=== PATIENT | male | born 1945 | race Caucasian/White ===

== ENCOUNTER 2017-05-04 04:34 | Inpatient (IN) | payer MEDICARE ==
[2017-05-04] MEDS ORDERED: NS 0.9% 1000 ML* 2,000 ML IV ONE (05:06)
[2017-05-04] MEDS ORDERED: Iodixanol* (CONTRAST) 320 MG/ML 100 ML SDV IV ONE (05:27)
[2017-05-04 05:52] LABS: ABS Basophils 0 10^3/ul (0-0.2); ABS Eosinophils 0 10^3/ul (0-0.6); ABS Lymphocytes 0.8 10^3/ul (1.0-4.8); ABS Monocytes 1.3 10^3/ul (0-0.8); ABS Neutrophils 14.2 10^3/ul (1.5-7.7); ABS Nucleated RBC 0 10^3/ul; Eosinophil % 0 % (0-6); Hematocrit 39 % (42-52); Hemoglobin 13.2 g/dl (14.0-18.0); Lymphocyte % 4.7 % (25-47); Mean Corpuscular HGB Conc 34 g/dl (31-36); Mean Corpuscular Hemoglobin 29 pg (27-31); Mean Corpuscular Volume 86 fL (80-94); Mean Platelet Volume 10 um3 (7.4-10.4); Nucleated Red Blood Cells % 0.1; Platelet Count 211 10^3/ul (150-450); Red Blood Count 4.55 10^6/ul (4.0-5.4); Red Cell Distribution Width 13 % (10.5-15); White Blood Count 16.3 10^3/ul (3.5-10.8)
[2017-05-04 06:03] LABS: EGFR Non-African American 72.4 (>60)
[2017-05-04 06:08] LABS: INR 1.1 (0.77-1.02)
[2017-05-04] MEDS ORDERED: Enoxaparin(*) 100 MG/ML SYR SUBCUT ONE (07:00)
--- NOTE | 2017-05-04 07:07 | ED ---
Mandy Chambers Edward, scribed for Jama Vazquez MD on 05/04/17 at 0445 . GI/ HPI - HPI Summary HPI Summary: 71 y/o male BIBA from [facility] for CT and possible surgical consult. In the ED the pt denies any specific complaints. Per nursing note, the pt has been intermittently vomiting for the past 4 weeks. Pt also had a PEG tube placed in that time period. Denies pain, denies history of CVA. - History of Current Complaint Time Seen by Provider: 05/04/17 04:43 Stated Complaint: VOMITING Hx Obtained From: Patient Onset/Duration: Started Weeks Ago Timing: Intermittent Location of Pain: None Associated Signs and Symptoms: Positive: Vomiting - Allergy/Home Medications Allergies/Adverse Reactions: Allergies Allergy/AdvReac Type Severity Reaction Status Date / Time Ibuprofen Allergy Unknown Verified 05/04/17 04:54 Reaction Details Naproxen [From Aleve] Allergy Unknown Verified 05/04/17 04:54 Reaction Details Venlafaxine Allergy Unknown Verified 05/04/17 04:54 Reaction Details Home Medications: Home Medications Acetaminophen [Acetaminophen Extra Stren] 500 mg PEG TUBE TID 05/04/17 [History Confirmed 05/04/17] Amitriptyline HCl [Elavil] 30 mg PEG TUBE DAILY 05/04/17 [History Confirmed ] Aspirin 81 mg PEG TUBE DAILY 05/04/17 [History Confirmed 05/04/17] Atorvastatin* [Lipitor*] 80 mg PO 1700 05/04/17 [History Confirmed 05/04/17] Bisacodyl [Dulcolax] [address] DAILY PRN 05/04/17 [History Confirmed 05/04/17] Brimonid/Timolol 0.2/0.5%(NF) [Combigan 0.2/0.5% (NF)] 1 drop BOTH EYES BID [History Confirmed 05/04/17] Calcium Ascorbate [Vitamin C] 500 mg PEG TUBE DAILY 05/04/17 [History Confirmed 05/04/17] Cholecalciferol [Vitamin D] 1,000 unit PEG TUBE DAILY 05/04/17 [History Confirmed 05/04/17] Clopidogrel Bisulfate [Plavix] 75 mg PO DAILY 05/04/17 [History Confirmed ] Cosopt 22.3-6.8 mg/ml 1 drop BOTH EYES BID 05/04/17 [History Confirmed 05/04/17] Docusate Sodium [Colace] 100 mg PEG TUBE DAILY 05/04/17 [History Confirmed 05/04] Famotidine SUSP* [Pepcid SUSP*] 40 mg PEG TUBE DAILY 05/04/17 [History Confirmed 05/04/17] Insulin Regular (Human) [Novolin R Relion] 05/04/17 [History] Latanoprost 0.005%* [Xalatan 0.005%*] 1 drop BOTH EYES QPM 05/04/17 [History Confirmed 05/04/17] Metformin HCl 500 mg PEG TUBE BID 05/04/17 [History Confirmed 05/04/17] Multiple Vitamins W/ Minerals [Multivitamin Adults] 1 tab PEG TUBE DAILY [History Confirmed 05/04/17] Nutritional Supplements [Glucerna 1.2 Primo] 1 liq PO TID 05/04/17 [History Confirmed 05/04/17] QUEtiapine TAB* [SEROquel TAB*] 100 mg PO BEDTIME 05/04/17 [History Confirmed ] Quetiapine Fumarate [Seroquel] 50 mg PEG TUBE BID 05/04/17 [History Confirmed ] PMH/Surg Hx/FS Hx/Imm Hx Previously Healthy: No Endocrine/Hematology History: Reports: Hx Diabetes Cardiovascular History: Reports: Hx Deep Vein Thrombosis, Hx Hypertension Neurological History: Reports: Hx Dementia Psychiatric History: Reports: Hx Eating Disorder - Refuses food Denies: Hx of Violent Episodes Against Others - Surgical History Surgery Procedure, Year, and Place: SHUNT 2011 - Family History Known Family History: Positive: Unknown - Social History Alcohol Use: None Hx Substance Use: No Substance Use Type: Reports: None Hx Tobacco Use: No Smoking Status (MU): Never Smoked Tobacco Review of Systems Constitutional: Negative Eyes: Negative ENT: Negative Cardiovascular: Negative Respiratory: Negative Positive: Vomiting Genitourinary: Negative Musculoskeletal: Negative Skin: Negative Neurological: Negative Psychological: Normal All Other Systems Reviewed And Are Negative: Yes Physical Exam - Summary Physical Exam Summary: VITAL SIGNS: Reviewed. GENERAL: Patient is a well-developed and nourished male who is lying comfortable in the stretcher. Patient is not in any acute respiratory distress. Patient is a poor historian and does not have any specific complaints. HEAD AND FACE: No signs of trauma. No ecchymosis, hematomas or skull depressions. No sinus tenderness. EYES: PERRLA, EOMI x 2, No injected conjunctiva, no nystagmus. EARS: Hearing grossly intact. Ear canals and tympanic membranes are within normal limits. MOUTH: Oropharynx within normal limits. NECK: Supple, trachea is midline, no adenopathy, no JVD, no carotid bruit, no c- spine tenderness, neck with full ROM. CHEST: Symmetric, no tenderness at palpation LUNGS: Clear to auscultation bilaterally. No wheezing or crackles. CVS: Regular rate and rhythm, S1 and S2 present, no murmurs or gallops appreciated. ABDOMEN: Soft, mild diffuse tenderness. ABD distension. No rebound no guarding, and no masses palpated. Hypoactive bowel sounds. Pt has a PEG tube placed. EXTREMITIES: FROM in all major joints, no edema, no cyanosis or clubbing. NEURO: Alert and oriented x 3. No acute neurological deficits. Speech is normal and follows commands. SKIN: Dry and warm Triage Information Reviewed: Yes Vital Signs Reviewed: Yes Diagnostics - Laboratory Result Diagrams: 05/04/17 05:35 05/04/17 05:35 Lab Statement: Any lab studies that have been ordered have been reviewed, and results considered in the medical decision making process. - CT ABD/PEL CTA CT Interpretation: Positive (See Comments) - Positive for pulmonary embolism. Mildly thickened segment of lef t upper quadrant small bowel may reflect nonspecific enteritis. Percutaneous gastrostomy tube with balloon inflated in the duodenum. CT Interpretation Completed By: Radiologist - ED PHYSICIAN REVIEWS AND AGREES - Additional Comments Diagnostic Additional Comments: EKG - SR @ 98 BPM. L axis deviation. Non specific T wave changes. No change from EKG done on 06/23/14. GIGU Course/Dx - Course Assessment/Plan: 71 y/o male BIBA from [facility] for CT and possible surgical consult. Pt had a PEG tube placed in the last 4 weeks. ABD/PEL CTA SHOWS Positive for pulmonary embolism. Mildly thickened segment of lef t upper quadrant small bowel may reflect nonspecific enteritis. Percutaneous gastrostomy tube with balloon inflated in the duodenum. Pt will be signed out to Dr. Gallardo at shift change pending admission. - Diagnoses Provider Diagnoses: Pulmonary embolism, Abdominal pain Discharge - Discharge Plan Condition: Stable Disposition: OTHER Discharge Disposition Comment: Pt signed out to Dr. Gallardo pending admission Referrals: No Primary Care Phys,NOPCP [Primary Care Provider] - The documentation as recorded by the Mandy murphy Edward accurately reflects the service I personally performed and the decisions made by me, Jama Vazquez MD.
[2017-05-04] MEDS ORDERED: Potassium Chlor TAB* 20 MEQ TAB.ER PO ONE (07:19)
--- NOTE | 2017-05-04 07:42 | ED ---
Alex Chambers Angela, scribed for Francisco Gallardo MD on 05/04/17 at 0720 . Progress - Progress Note Progress Note: This pt was signed out by Dr. Vazquez, pending disposition. Pt is a 71 y/o male presenting to [facility] [place] from [place] for CT and possible surgical consult. CTA abd/pelvis shows: Positive for pulmonary embolism. Mildly thickened segment of left upper quadrant small bowel may reflect nonspecific enteritis. Percutaneous gastrostomy tube with balloon inflated in the duodenum. The pt will be admitted to [facility], in stable condition. Condition: Stable Disposition: Admitted to [facility] Course/Dx - Diagnoses Provider Diagnoses: Pulmonary embolism, Abdominal pain - Provider Notifications Discussed Care Of Patient With: Oni Caro Time Discussed With Above Provider: 07:20 Instructed by Provider To: Other - I discussed pt care with Dr. Caro, hospitalist, who has agreed to admit the pt. The documentation as recorded by the Alex murphy Angela accurately reflects the service I personally performed and the decisions made by , Francisco Gallardo MD.
--- NOTE | 2017-05-04 08:06 | RAD ---
INDICATION: 4 weeks vomiting. PEG tube. Ischemia. COMPARISON: May 04, 2017 PEG tube placement intraoperative film from [facility]. TECHNIQUE: Multidetector CT images were obtained from the lung bases to the ischial tuberosities with 100 mL Visipaque 320 IV contrast. Multiplanar reformation. 3-D arterial volume rendering. REPORT: At the cephalad margin of the [id number] there is evidence for a high burden of acute pulmonary embolism at the distal main pulmonary arteries extending into the visualized lower lobe pulmonary arteries. Coronary artery calcifications. Negative for cardiomegaly or pericardial effusion. Mild bibasilar subsegmental atelectasis. No suspicious finding of the gallbladder or liver. Unremarkable mildly atrophic pancreas. Unremarkable spleen. Mild circumferential mural thickening of the visualized distal esophagus. Percutaneous gastrostomy tube in place with the balloon at the level of the second segment of the duodenum. Mild gastric distention with gas and fluid. No suspicious CT finding of the small bowel. The appendix is not visualized with motion artifact limiting assessment. Unremarkable colon. Negative for ascites, free air, or significant hernias. Normal adrenal glands. Mildly atrophic kidneys with symmetric nephrograms. Few small renal cortical cysts. Negative for hydronephrosis. Unremarkable nondilated ureters and moderately distended urinary bladder. Symmetric seminal vesicles. Negative for lymphadenopathy. Mild atherosclerotic plaque. Negative for aortoiliac aneurysm. 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 Approximate 50% stenosis at the ostium of the RIGHT renal artery and 70% stenosis at the ostium of the LEFT renal artery. Negative for suspicious osseous lesions. IMPRESSION: 1. High burden of acute pulmonary embolism. 2. Mild circumferential mural thickening of the visualized distal esophagus; while nonspecific the most likely etiology is esophagitis. 3. The balloon of the gastrostomy tube is at the level of the second segment of the duodenum and may result in partial obstruction. Correlate with clinical assessment. 4. Mild atherosclerotic plaque. Negative for aortoiliac aneurysm. 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 Approximate 50% stenosis at the ostium of the RIGHT renal artery and 70% stenosis at the ostium of the LEFT renal artery.
[2017-05-04] MEDS ORDERED: Ondansetron INJ* 2 MG/ML VIAL IV PRN (11:52)
[2017-05-04] MEDS ORDERED: Acetaminophen TAB* 325 MG PO PRN (11:52)
[2017-05-04] MEDS ORDERED: Piperacillin/Tazobac ADVAN(*) 3.375 GM in NS 0.9% 100 ML* 100 ML IVPB ONE (11:52)
[2017-05-04] MEDS ORDERED: Dextrose 50% Syringe 50 ML* 25 GM/50 ML SYRINGE IV PUSH PRN (11:57)
[2017-05-04] MEDS ORDERED: Zosyn per Pharmacy* NOTE FOLLOW UP SCH (12:00)
[2017-05-04] MEDS ORDERED: Magnesium Sulfate 2 GM IV* 2 GM/50 ML BAG IVPB ONE (12:03)
[2017-05-04] MEDS ORDERED: LORazepam INJ* 2 MG/ML 1 ML VIAL IV PUSH ONE ×2 (12:18→22:03)
--- NOTE | 2017-05-04 12:35 | RAD ---
HISTORY: Cough COMPARISONS: May 03, 2017 VIEWS: 1: frontal portable view of the chest at 12:10 PM FINDINGS: LINES AND TUBES: LINE CAMERA OPERATOR shunt tubing is noted on the right. CARDIOMEDIASTINAL SILHOUETTE: The cardiomediastinal silhouette is normal for portable technique. PLEURA: The costophrenic angles are sharp. No pleural abnormalities are noted. LUNG PARENCHYMA: The lung volumes are low. ABDOMEN: The upper abdomen is clear. There is no subphrenic gas. BONES AND SOFT TISSUES: No bone or soft tissue abnormalities are noted. IMPRESSION: LOW LUNG VOLUMES. NO ACTIVE CARDIOPULMONARY DISEASE.
[2017-05-04] MEDS: NS 0.9% 1000 ML* 1,000 ML IV SCH (13:14)
[2017-05-04] MEDS: Insulin LISPRO* 1 UNITS UNIT SUBCUT SCH ×2 (14:19→21:53)
[2017-05-04] MEDS: Pantoprazole IV* 40 MG IV SCH (14:20)
[2017-05-04] MEDS: KCL 10 MEQ/50 ML IVPREMIX* 10 MEQ/50 ML BAG IV SCH ×3 (16:13→20:46)
--- NOTE | 2017-05-04 17:05 | ECHO ---
Patient: ZAFAR PLATA [facility] Rec#: [id number] : 1945 Date: 05/04/2017 Age: 71y Height: 175.26 cm / 69.0 in Weight: 81.19 kg / 178.9 lbs Sex: M BSA: 1.97 Room#: 436 Admit Date#: 05/04/2017 Type: Inpatient Referring: Moses Simon NP Reading: Solomon Boggs MD Event Marketing Representative: [facility] Indication: Recent CVA and Pulmonary emboli BP: 127/72 HR: 102 Rhythm: Tachycardia Findings History: HTN, DVT, DM, hydrocephalus. Technical Comments: The study quality is poor. The study is technically limited due to poor acoustic windows. Completed at 1630. Left Ventricle: The left ventricular chamber size is normal. Mild concentric left ventricular hypertrophy is observed. Global left ventricular wall motion and contractility are within normal limits. The left ventricle appears hyperdynamic. The estimated ejection fraction is greater than 65%. Abnormal left ventricular diastolic function is observed. There is an E to A reversal in the mitral valve flow pattern suggestive of diastolic dysfunction. Left Atrium: The left atrial chamber size is normal. Right Ventricle: Moderator Band present. The right ventricle is mildly dilated. The right ventricular global systolic function is hyperdynamic. Right Atrium: The right atrial cavity size is normal. Interatrial septum appears intact without evidence of shunting. Bubble study completed, Image quality not clear enough to rule out PFO or shunting Aortic Valve: The aortic valve is trileaflet. The aortic valve leaflets are mildly thickened. There is no evidence of aortic regurgitation. There is no evidence of aortic stenosis. Mitral Valve: There is mitral annular calcification. The mitral valve leaflets are mildly thickened. There is trace to mild mitral regurgitation. There is no evidence of mitral stenosis. Tricuspid Valve: The tricuspid valve leaflets are normal. There is mild tricuspid regurgitation. The right ventricular systolic pressure is estimated at 52 mmHg. There is evidence of moderate pulmonary hypertension. There is no tricuspid stenosis. Pulmonic Valve: The pulmonic valve appears normal. There is a trace pulmonic regurgitation. There is no pulmonic stenosis. Pericardium: There is no significant pericardial effusion. A pericardial fat pad is visualized. Aorta: There is moderate dilatation of the ascending aorta.4.1 cm There is no dilatation of the aortic arch. There is mild dilatation of the aortic root. Pulmonary Artery: The main pulmonary artery appears normal. Venous: The inferior vena cava is dilated. There is a greater than 50% respiratory change in the inferior vena cava dimension. Contrast: Normal saline was used as contrast for the bubble study. Images 93 and 94. Intravenous contrast was used to help determine presence of intracardiac shunting. Summary: There was not any prior study for comparison. Conclusions The study is technically limited due to poor acoustic windows. Completed at 1630. Global left ventricular wall motion and contractility are within normal limits. The estimated ejection fraction is greater than 65%. Abnormal left ventricular diastolic function is observed. The right ventricular global systolic function is hyperdynamic. Interatrial septum without aneurysm. Bubble study completed, Image quality not clear enough to rule out PFO or shunting There is no evidence of aortic stenosis. There is trace to mild mitral regurgitation. There is mild tricuspid regurgitation. The right ventricular systolic pressure is estimated at 52 mmHg. There is evidence of moderate pulmonary hypertension. There is moderate dilatation of the ascending aorta.4.1 cm Measurements Name Value Normal Range RVIDd (AP) 2D 3.6 cm (0.9 - 2.6) RVDdMajor (2D) 4.8 cm (2.2 - 4.4) RAd ISD 4CH 4.7 cm (3.4 - 4.9) RA (A4C)W 4.4 cm (2.9 - 4.6) IVSd (2D) 1.1 cm (0.6 - 1) LVPWd (2D) 1.1 cm (0.6 - 1) LVIDd (2D) 4.1 cm (3.6 - 5.4) LVIDs (2D) 2 cm - LV FS (2D) 50 % (25 - 45) Aortic Annulus 2.3 cm (1.4 - 2.6) Ao root diameter (2D) 3.8 cm (2.1 - 3.5) Ascending Ao 4.1 cm (2.1 - 3.4) Aortic arch 3 cm (1.8 - 3.4) LA dimension (AP) 2D 3.2 cm (2.3 - 3.8) LAd ISD 4CH 4.3 cm (2.9 - 5.3) LA ISD 4CH W 3.6 cm (2.5 - 4.5) Name Value Normal Range LA ESV SP 4CH (A/L) 55 ml - LA ESV SP 2CH (A/L) 49 ml - LA ESV BP (A/L) 53 ml - LA ESV BP (A/L) index 27 ml/m2 - LA ESV SP 4CH (MOD) 51 ml - LA ESV SP 2CH (MOD) 45 ml - Name Value Normal Range MV E-wave Vmax 0.58 m/sec - MV deceleration time 204.89 msec - MV A-wave Vmax 1.01 m/sec - MV E:A ratio 0.57 ratio - LV septal e' Vmax 0.08 m/sec - LV lateral e' Vmax 0.09 m/sec - LV E:e' septal ratio 7.25 ratio - LV E:e' lateral ratio 6.44 ratio - Name Value Normal Range AV Vmax 1.6 m/sec - AV VTI 27.26 cm - AV peak gradient 8.17 mmHg - AV mean gradient 4.52 mmHg - LVOT Vmax 1.4 m/sec - LVOT VTI 23 cm - LVOT peak gradient 8.5 mmHg - LVOT mean gradient 4.23 mmHg - VALERY Vmax 0.73 m/sec - Name Value Normal Range TR Vmax 3.3 m/sec - TR peak gradient 44 mmHg - RAP 8 mmHg - RVSP 52 mmHg - IVC diameter 2.5 cm - Name Value Normal Range PV Vmax 1.09 m/sec - PV peak gradient 4.75 mmHg -
[2017-05-04] MEDS: Atorvastatin* 80 MG TAB PO SCH (17:40)
[2017-05-04] MEDS: ZOSYN 3.375 GM Q8H per EXTENDED INFUSION IVPB SCH ×2 (18:13)
--- NOTE | 2017-05-04 18:41 | RAD ---
Indication: PICC repositioning. Single view of the abdomen demonstrates PEG tube to be within the small bowel with contrast in the small bowel. IMPRESSION: Percutaneous gastrostomy tube is likely in the duodenum.
--- NOTE | 2017-05-04 20:30 | HP ---
CC: Dr. Schulz; Dr. Adame; Dr. Ayala * HISTORY AND PHYSICAL: DATE OF ADMISSION: 05/04/17 PRIMARY CARE PROVIDER: Dr. Ayala. CONSULTING SHINGLE BOLT CUTTER: Dr. Schulz. CONSULTING NEUROLOGIST: Dr. Adame. ATTENDING PHYSICIAN WHILE IN THE HOSPITAL: Leodan Caro MD * (report dictated by Moses iSmon NP). CHIEF COMPLAINT: 1. Vomiting. 2. Chest pain. HISTORY OF PRESENT ILLNESS: Mr. Lyons is a 71-year-old male patient with a complex medical history. He comes in to the ED today because of vomiting, which has been getting progressively worse over the last week. He does have a history of bipolar, hypertension, hyperlipidemia, dementia, arthritis, and diabetes. He has a history of hydrocephalus with a END USER CONSULTANT shunt and history of stroke on 03/23/17. He was treated at [facility]. Also has a history of ANNIE, also the stroke caused him to have residual right-sided weakness and difficulty with swallowing. He had a G-tube placed three weeks ago in [facility] and from [facility], he was transferred to [facility]. Yesterday morning, he was complaining of chest pain and vomiting. He was evaluated in the [place] ED, sent back to the longterm. It was felt the chest pain was probably from the vomiting according to the family; however, he continued to vomit and last night, he was still having chest pain, so he was reevaluated again last night at [facility]. There was concern there because of the recurrence of chest pain and the vomiting. He was ultimately sent to [facility] for evaluation of the chest pain and the vomiting. There has been no reports of fever. The family says that he has been having intermittent issues with vomiting with his PEG tube feedings since the placement. Initially, they felt it was related to that they had increased his rate too fast, they slowed down his rates beginning of this month and then they got him back to his goal rate, but they have noticed in the last week that they switched him over to bolus tube feedings and they noticed that with this, he has been significant issues. They thought perhaps that this was the issue. However, he continued to vomit and they requested further workup and he was evaluated. Ultimately, found to have migration of this G tube and incidentally was found to have PEs in his lungs on CTA of the abdomen and pelvis. Because of the finding of the PEs and the finding of the displaced PEG tube, we were asked to evaluate for admission. The patient does state that he does have chest pain. He does have underlying dementia. It is hard to get a sense as to when it happened and it is hard to get a sense of when the vomiting happened for him. The family was there to help with me with my history. He does state that the pain in his chest is worse when he takes a deep breath and he does not feel short of breath at this point. He denies having any abdominal discomfort. There was abdominal pain earlier today, but after vomiting he felt better. He is denying any abdominal pain now and he denies having any nausea, but because of the PEs, the migration of the g tube, we were asked to evaluate for admission. Again, the vomiting was getting worse. Ultimately, he was found to have migration of his G tube and PEs, we were asked to evaluate for admission. PAST MEDICAL HISTORY: Significant for: 1. Bipolar disorder. 2. Hypertension. 3. Hyperlipidemia. 4. Dementia. 5. Arthritis. 6. Diabetes. 7. History of hydrocephalus with END USER CONSULTANT shunts with repairs. 8. History of stroke just about a month ago at [place], we are getting records. 9. ANNIE, but he does not wear a mask anymore. He has lost weight since over several years and has not required mask. PAST SURGICAL HISTORY: 1. He has had PEG tube placement. 2. He has had END USER CONSULTANT shunt with repairs. 3 He has had hernia repair. 4. He has had bilateral knee arthroscopies. MEDICATIONS: The home meds according to the list that was provided include: 1. Aspirin 81 mg daily. 2. Elavil 30 mg daily. 3. Tylenol Extra Strength 500 mg t.i.d. 4. Seroquel 50 mg b.i.d. 5. Seroquel 100 mg at bedtime. 6. Glucerna 1 can p.o. t.i.d. 7. Latanoprost 1 drop to both eyes daily. 8. Lipitor 80 mg daily. 9. Multivitamin 1 tablet daily. 10. Metformin 500 mg p.o. b.i.d. 11. Pepcid 40 mg daily. 12. Colace 100 mg daily. 13. Cosopt 1 drop both eyes b.i.d. 14. Plavix 75 mg daily. 15. Vitamin C 500 units daily. 16. Vitamin D 1000 units p.o. daily. 17. Combigan 1 drop both eyes b.i.d. 18. Bisacodyl suppository 10 mg RI daily as needed. 19. Insulin sliding scale. ALLERGIES TO MEDICATIONS: Include IBUPROFEN, NAPROXEN and EFFEXOR. FAMILY HISTORY: His mother had a history of diabetes. Father had a history of liver cancer. SOCIAL HISTORY: He does not smoke. Does not drink. Surrogate decision maker is his and daughter. REVIEW OF SYSTEMS: There is no documented fever. There is no significant weight change recently. No double vision. No ear discharge. No rhinorrhea. No sore throat. No thyroid enlargement. There were complaints of chest discomfort. No complaints of shortness of breath or orthopnea. No abdominal pain, but there was nausea and vomiting. There is no abdominal pain now; he did report some previously prior to vomiting. No dysuria and no frequency. No seizures and no loss of consciousness. No pruritus. No skin ulcerations. Review of 14 systems was completed, all others negative. PHYSICAL EXAMINATION GENERAL: At this time, Mr. Lyons is a 71-year-old male patient. He is chronically ill appearing. He is sitting in the hospital bed. He does not appear to be in any acute distress. VITAL SIGNS: Blood pressure 127/72, pulse rate of 60, respirations were 20, O2 sat of 98% on 2 L, and temperature was 97.7. HEENT: Head: Atraumatic, normocephalic. Eyes: EOMs are intact. Sclerae are anicteric and not pale. Throat: Oral mucosa appears to be moist. No oropharyngeal erythema. NECK: Supple. LUNGS: He had rhonchi in the upper lobes, otherwise clear to auscultation. No wheezes, rales or rhonchi. HEART: Sounds S1, S2. Regular rate and rhythm. No murmurs, rubs, or gallops. ABDOMEN: Soft, flat. Bowel sounds were present. He did have a G tube which was in place. EXTREMITIES: Pulses were 2+ throughout. He does not move the right side. He has 5/5 strength in the left. NEUROLOGIC: He thinks he is in [place]. He thinks he is in the 70s, but he is alert to himself. His speech was clear. He is able to answer simple questions. He is moving the left side well. He cannot move the right side at this point. No other gross focal deficits. SKIN: Intact. LABORATORY DATA/DIAGNOSTIC STUDIES: WBC of 16.3, RBC of 4.55, hemoglobin of 13.2, hematocrit of 39, and platelet count of 211,000. INR was 1.10, PTT was 29.2. Sodium 140, potassium 3.3, chloride 97, bicarb 35, BUN 37, creatinine 1.01 , glucose of 183. Lactate 3.5. Calcium 9.5, mag 1.5. Total bili 0.7, AST 12, ALT 16, alk phos 72. LDH was 242. CK 44. CRP 36. Albumin of 3.6. Amylase and lipase normal. He had a CTA of the abdomen and pelvis, which showed an impression of high burden of acute PE, mild circumferential mural thickening of the visualized distal esophagus, while nonspecific, it is most likely esophagitis. Impression 3, the balloon of the G tube is at the level of the second segment of the duodenum which may result in partial obstruction. Clinical assessment 4, mild atherosclerotic plaque negative for aneurysm, approximately 50% ostial stenosis of the SMA, approximately 50% of the ostium of the right renal artery and 70% stenosis of the left renal artery. He did have an EKG obtained at this point. My impression at this point was it shows a sinus rhythm, rate of [address] elevations or T-wave inversions. 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 Reviewed with the previous EKGs, it appears to be similar. No acute changes were noted. Old medical records reviewed. ASSESSMENT AND PLAN: Mr. Lyons is a 71-year-old male patient with complex medical history, coming into the ED today with complaints of vomiting, progressively getting worse over the last week, and found to have pulmonary embolisms with a migrated G tube. He will be admitted under observation status for: 1. Pulmonary embolism. At this point, I will certainly go ahead and put him on Lovenox subcu b.i.d. Bigger question here is as he just recently had a stroke, he is on aspirin and Plavix. I did discuss the case with Dr. Adame, he will be in to evaluate. As I do not want him on triple therapy, I would like to minimally stop the Plavix, but Dr. Adame will weigh in. We will get the records from [place]. We will get an echo to see how his right heart is tolerating this. In addition to this, I am going to get a dedicated CTA of the chest tomorrow and we will continue to follow. He will be placed on telemetry. 2. Recent cerebrovascular accident. Again, mechanism is unclear. I questioned if the patient did have a PFO and if he recently had a deep venous thrombosis that may explain the pulmonary embolism that he was having apparently according to the family, chest pain back in March. I think getting the neurology input is important. Continuing minimally on the aspirin and statin. Question if whether or not to continue the Plavix or not. Dr. Adame will weigh in and we will continue the Lovenox now for the time being. We are getting a CT of the brain and getting records. 3. PEG tube placement for dysphagia. This was done 3 weeks ago. I am getting the records from [facility], Dr. Schulz will be in to evaluate. He will be n.p.o. until we pull the tube back and then we will slowly reevaluate him clinically to see if he is tolerating this, but Dr. Schulz will be in to evaluate for this and will start him back on his tube feeds with nutrition consult. As soon as the tube is back into place, we will continue using it per the recommendations of GI. 4. Bipolar disorder. Continue with supportive care. 5. Dementia. Continue meds as prescribed. 6. Leukocytosis. Question if he aspirated. I mean he has been vomiting. As we know, he has trouble swallowing. We are getting a chest x-ray, blood cultures. I would recommend getting a formal swallow evaluation after the G tube has been addressed. He will be n.p.o. until we can further evaluate this. I will get blood cultures, urine, as well as put him on Zosyn, get a chest x- ray, check flu and follow for the leukocytosis. 7. Diabetes. He will be on a lispro sliding scale with q.6 hour fingersticks. 8. Arthritis. Continue meds as prescribed. 9. Hydrocephalus. We are going to re-CT his brain to make sure he has no ventriculomegaly as this could be a culprit of vomiting, but I suspect the vomiting is most likely from his G tube being misplaced. 10. Hypertension. Again, we will continue meds when able. 11. Hyperlipidemia. Continue statin therapy. 12. DVT prophylaxis. He will be on Lovenox subcu. We are going to get an accurate rate to get the most appropriate dose. 13. Code status. DNR. 14. Fluid, electrolytes and nutrition. N.p.o. and then I would get a swallow evaluation after the G tube is placed back to where it needs to be and feed him with both p.o. and tube feedings and we are getting a nutrition consult. TIME SPENT: On the admission was 70 minutes; greater than half the time was spent [id number] with the patient obtaining my history and physical; the other half time was spent going over the plan of care with the patient and implementing the plan of care. I did discuss the plan of care with my attending, Dr. Caro; he is in agreement. MOSES SIMON NP [id number]/CPS #: [id number] RAQUEL
[2017-05-04] MEDS ORDERED: Brimonid/Timolol 0.2/0.5%(NF) 10 ML OPHTH.SOLN BOTH EYES SCH (21:00)
[2017-05-04] MEDS ORDERED: Enoxaparin(*) 100 MG/ML SYR SUBCUT SCH (21:00)
[2017-05-04] MEDS: QUEtiapine TAB* 100 MG PO SCH (21:52)
[2017-05-04] MEDS: QUEtiapine TAB* 25 MG PEG TUBE SCH (21:52)
[2017-05-04] MEDS ORDERED: BRIMONID BOTH EYES SCH (22:00)
[2017-05-04] MEDS ORDERED: TIMOLOL BOTH EYES SCH (22:00)
[2017-05-04] MEDS: Latanoprost 0.005%* 2.5 ml BTL BOTH EYES SCH (22:16)
--- NOTE | 2017-05-04 22:34 | CONS ---
CONSULTATION REPORT: DATE OF CONSULT: 05/04/17 HISTORY OF PRESENT ILLNESS: Julien Lyons, who I was asked to evaluate for someone who has had a recent stroke in March that was treated in [place] with right-sided weakness and aphasia. He still remains wheelchair bound with right-sided weakness, although it is improving. His speech has also been affected, but now is improved. He has an underlying history of dementia and he has had normal pressure hydrocephalus status post shunt. He comes in currently because of few day history of vomiting and was found on workup of his abdomen and chest to have pulmonary embolism. He was started on aspirin and Plavix after his stroke evaluation last month. He has had no further focal neurological symptoms since his stroke a month ago. He has chronic headache that has been unchanged. PAST MEDICAL HISTORY: 1. History of hypertension. 2. Dementia. 3. Glaucoma. 4. Hyperlipidemia. 5. Bipolar disease. 6. Degenerative arthritis. 7. Diabetes. PAST SURGICAL HISTORY: He has had a shunt placed. He has had 3 umbilical hernia repairs, bilateral knee arthroscopies. MEDICATIONS: At home include: 1. Amitriptyline 30 mg through his PEG tube. 2. Aspirin 81 mg through his PEG tube. 3. Lipitor 80 mg. 4. Timolol eye drops. 5. Colace 100 mg daily. 6. Lovenox 100 mg subcu q. 12 hours. 7. Sliding scale of Humalog. 8. Zofran p.r.n. 9. Seroquel 100 mg at bedtime and 50 mg b.i.d. 10. He is on Plavix 75 mg daily. 11. Metformin 500 mg daily. ALLERGIES: IBUPROFEN, NAPROXEN, and VENLAFAXINE. FAMILY HISTORY: He was unable to give family history. SOCIAL HISTORY: He does not smoke or drink. He has had no diarrhea. PHYSICAL EXAM: On exam, temperature 97, pulse 86, respirations 22, blood pressure 127/72. He was alert. He mumbled occasional words and could follow at times simple one step commands, but tended to perseverate and was inconsistent. He moves his legs when asked and kind of move his left leg more than his right. Cranial nerves II through XII were intact. Red reflexes present bilaterally. Face, mild right facial weakness. Motor Exam: He moved to his left side more spontaneously and with more power that his right. He did not fully cooperate. He was able to wiggle toes on his right side. Sensation grossly intact to light touch. Reflexes were 1 and equal. Toes were equivocal to downgoing. Chest: Clear. Cardiovascular: Regular rate and rhythm. Abdomen: Soft with positive bowel sounds. IMPRESSION: Moses Simon is going to begin anticoagulation for his pulmonary embolism and we discussed that having him on aspirin and Plavix both in addition would put him at higher risk for bleeding complications. We are going to continue the aspirin 81 mg and discontinue the Plavix at this point. He is also going to get an echo with bubble study to make sure he does not a patent foramen ovale. If he has a patent foramen ovale then it is possible that he had deep vein thrombosis that was throwing clot to his brain as well as his heart. He is also going to repeat the CT scan to get a new baseline and also to make sure that there is no hydrocephalus or shunt malfunction causing his vomiting. It seems like his PEG tube may be poorly located. I deferred to his primary doctors to know whether this is the cause of his vomiting. Thank you for sharing his case. [id number]/[facility] #: [id number] RAQUEL
[2017-05-04] MEDS: Dorzolamide/Timolol OPTH (NF) 10 ML BOT BOTH EYES SCH (23:34)
--- NOTE | 2017-05-05 00:05 | CONS ---
CONSULTATION REPORT: DATE OF CONSULTATION: 05/04/17 REQUESTING PHYSICIAN: Moses Simon NP. INDICATION: Vomiting. HISTORY OF PRESENT ILLNESS: Mr. Lyons is a 71-year-old gentleman with multiple medical issues. He was transferred fro [facility] over the [facility] because the CAT machine at [facility] was "broken. " The patient was sent to [place] ED for multiple episodes of vomiting. He lives at [facility]. The vomiting has been going on for the past few weeks. He has been to the emergency room 2 to 3 times with no etiology found. He does have mild abdominal tenderness. PAST MEDICAL HISTORY: Significant for: 1. Diabetes. 2. Hyperlipidemia. 3. Dementia. 4. Bipolar. 5. Anxiety. PAST SURGICAL HISTORY: Includes: 1. COLLAR FELLER shunt. 2. Hernia repair. 3. PEG tube placed at [facility]. MEDICATIONS UPON ADMISSION: Include: 1. Elavil. 2. Aspirin. 3. Lipitor. 4. Vitamin D. 5. Colace. 6. Cosopt. 7. Humalog. 8. Zofran. 9. Seroquel. SOCIAL HISTORY: No tobacco. No alcohol. Lives at [facility]. REVIEW OF SYSTEMS: Twelve systems were reviewed, other than mentioned in the HPI were unremarkable. PHYSICAL EXAMINATION: Temperature is 97.7, blood pressure is 127/72, pulse is 86, respiratory rate of 22, O2 saturation 98%. Physical exam deferred at this time as the patient is undergoing a transthoracic echocardiogram. DIAGNOSTIC STUDIES/LABORATORY DATA: Of note, white count is 16.3, hemoglobin is 13.2, platelets of 211. INR is 1.10. C-reactive protein is 36.4. He has a CT angiogram here at [facility], which shows pulmonary emboli and the balloon of his feeding tube is inflated in the proximal portion of the duodenum. The direct cord of the balloon of the gastrostomy tube is at the level of the second segment of the duodenum and may result in partial obstruction. ASSESSMENT AND PLAN: A pleasant 71-year-old gentleman coming in with vomiting, it appears that his PEG tube has migrated down into the duodenum. At this point , I need to evaluate PEG tube. He is undergoing an echocardiogram right now. If it is found that the PEG tube has been pulled down, I will deflate the PEG tube, pull it back a little bit into the stomach and then re-inflate. The tube is within the lumen of the gastrointestinal tract but it appears that it has simply migrated down into the duodenum likely causing partial obstruction, Further addendum will be handwritten in the chart. [id number]/CPS #: [id number] MTDD
[2017-05-05] MEDS: Insulin LISPRO* 1 UNITS UNIT SUBCUT SCH ×4 (00:26→18:29)
[2017-05-05] MEDS: NS 0.9% 1000 ML* 1,000 ML IV SCH ×2 (01:20→12:31)
[2017-05-05 01:24] LABS: Urine Appearance Clear; Urine Blood Negative (Negative); Urine Color Yellow; Urine Ketones Trace (Negative); Urine Protein 1+(30 mg/dL) (Negative); Urine Specific Gravity 1.028 (1.010-1.030); Urine Urobilinogen Positive (Negative)
[2017-05-05] MEDS: ZOSYN 3.375 GM Q8H per EXTENDED INFUSION IVPB SCH ×6 (01:57→18:29)
[2017-05-05] MEDS: Enoxaparin(*) 80 MG/0.8 ML SYR SUBCUT SCH ×2 (06:01→18:29)
--- NOTE | 2017-05-05 07:36 | RAD ---
INDICATION: Vomiting, history of hydrocephalus. COMPARISON: Comparison is made with prior CT brain from June 23, 2014. TECHNIQUE: Contiguous axial sections of the brain were obtained from the skull base to the vertex without contrast. FINDINGS: The exam is extremely limited due to motion artifact. There is a ventricular shunt catheter entering from the right posterior parietal approach. The catheter tip projects over the frontal horn of the right lateral ventricle and extends to the midline and appears unchanged in position from the prior study. The ventricles, cisterns and sulci are prominent and unchanged most consistent with atrophy. No significant focal abnormality or mass effect is seen although as noted the exam is extremely limited due to motion artifact. The visualized portion of the paranasal sinuses and mastoid air cells appear clear. IMPRESSION: EXTREMELY LIMITED EXAM DUE TO MOTION ARTIFACT. NO EVIDENCE FOR GROSS ACUTE INTRACRANIAL ABNORMALITY.
[2017-05-05 08:00] LABS: Hematocrit 34 % (42-52); Hemoglobin 11.3 g/dl (14.0-18.0); Mean Corpuscular HGB Conc 34 g/dl (31-36); Mean Corpuscular Hemoglobin 29 pg (27-31); Mean Corpuscular Volume 88 fL (80-94); Mean Platelet Volume 9 um3 (7.4-10.4); Platelet Count 171 10^3/ul (150-450); Red Blood Count 3.85 10^6/ul (4.0-5.4); Red Cell Distribution Width 14 % (10.5-15); White Blood Count 13.9 10^3/ul (3.5-10.8)
[2017-05-05 08:24] LABS: EGFR Non-African American 83.8 (>60)
[2017-05-05 08:35] LABS: INR 1.29 (0.77-1.02)
[2017-05-05 08:54] LABS: ABS Basophils 0.1 10^3/ul (0-0.2); ABS Eosinophils 0 10^3/ul (0-0.6); ABS Lymphocytes 0.7 10^3/ul (1.0-4.8); ABS Monocytes 1.1 10^3/ul (0-0.8); ABS Neutrophils 12.1 10^3/ul (1.5-7.7); ABS Nucleated RBC 0 10^3/ul; Eosinophil % 0.2 % (0-6); Nucleated Red Blood Cells % 0
[2017-05-05] MEDS: Amitriptyline TAB* 10 MG PEG TUBE SCH (09:27)
[2017-05-05] MEDS: QUEtiapine TAB* 25 MG PEG TUBE SCH ×2 (09:27→18:36)
[2017-05-05] MEDS: Aspirin Low Dose CHEW TAB* 81 MG PEG TUBE SCH (09:27)
[2017-05-05] MEDS: Docusate CAP* 100 MG PO SCH (09:27)
[2017-05-05] MEDS: Cholecalciferol TAB* 1000 UNITS PEG TUBE SCH (09:27)
[2017-05-05] MEDS: TIMOLOL BOTH EYES SCH ×2 (09:28→22:15)
[2017-05-05] MEDS: BRIMONIDINE BOTH EYES SCH ×2 (09:28→22:15)
[2017-05-05] MEDS: Dorzolamide/Timolol OPTH (NF) 10 ML BOT BOTH EYES SCH ×2 (09:30→22:15)
[2017-05-05] MEDS ORDERED: LORazepam INJ* 2 MG/ML 1 ML VIAL ONE (10:05)
[2017-05-05] MEDS ORDERED: Metoprolol Tartrate IV* 1 MG/ML 5 ML VIAL ONE (10:05)
[2017-05-05] MEDS ORDERED: LORazepam INJ* 2 MG/ML 1 ML VIAL IV PUSH ONE (10:10)
[2017-05-05] MEDS ORDERED: Metoprolol Tartrate IV* 1 MG/ML 5 ML VIAL IV ONE ×2 (10:10→13:32)
--- NOTE | 2017-05-05 11:25 | PN ---
Subjective Date of Service: 05/05/17 Interval History: Pt is agitated and squirming all over the bed. Nursing noted the patient suddenly became tachycardic this AM. Objective Active Medications: Acetaminophen (Tylenol Tab*) 650 mg PO Q4H PRN PRN Reason: FEVER/PAIN Amitriptyline HCl (Elavil Tab*) 30 mg PEG TUBE DAILY [facility] Last Admin: 05/05/17 09:27 Dose: 30 mg Aspirin (Aspirin Low Dose Tab*) 81 mg PEG TUBE DAILY [facility] Last Admin: 05/05/17 09:27 Dose: 81 mg Atorvastatin Calcium (Lipitor*) 80 mg PO 1700 [facility] Last Admin: 05/04/17 17:40 Dose: Not Given Brimonidine/Timolol (Combigan Ophth (Nf)) 1 drop BOTH EYES BID [facility] Last Admin: 05/05/17 09:28 Dose: Not Given Cholecalciferol (Vitamin D Tab*) 1,000 units PEG TUBE DAILY [facility] Last Admin: 05/05/17 09:27 Dose: 1,000 units Dextrose (D50w Syringe 50 Ml*) 12.5 gm IV PUSH .FOR FS < 60 - SS PRN PRN Reason: FS < 60 Docusate Sodium (Colace Cap*) 100 mg PO DAILY [facility] Last Admin: 05/05/17 09:27 Dose: 100 mg Dorzolamide/Timolol (Cosopt (Nf)) 1 drop BOTH EYES BID [facility] Last Admin: 05/05/17 09:30 Dose: Not Given Enoxaparin Sodium (Lovenox(*)) 80 mg SUBCUT Q12H [facility] Last Admin: 05/05/17 06:01 Dose: 80 mg Sodium Chloride (Ns 0.9% 1000 Ml*) 1,000 mls @ 100 mls/hr IV PER RATE [facility] Last Admin: 05/05/17 01:20 Dose: 100 mls/hr Piperacillin Sod/Tazobactam (Sod 3.375 gm/ Sodium Chloride) 100 mls @ 25 mls/ hr IVPB Q8H [facility] Last Admin: 05/05/17 09:25 Dose: 25 mls/hr Insulin Human Lispro (Humalog*) 0 units SUBCUT Q6HR LISA PRN Reason: Protocol Last Admin: 05/05/17 05:59 Dose: Not Given Latanoprost (Xalatan 0.005%*) 1 drop BOTH EYES QPM [facility] Last Admin: 05/04/17 22:16 Dose: 1 drop Ondansetron HCl (Zofran Inj*) 4 mg IV Q6H PRN PRN Reason: NAUSEA Pantoprazole Sodium (Protonix Iv*) 40 mg IV Q24H [facility] Last Admin: 05/04/17 14:20 Dose: 40 mg Pharmacy Consult (Zosyn Per Pharmacy*) 1 note FOLLOW UP .ZOSYN PER PHARMACY [facility] Quetiapine Fumarate (Seroquel Tab*) 100 mg PO BEDTIME [facility] Last Admin: 05/04/17 21:52 Dose: Not Given Quetiapine Fumarate (Seroquel Tab*) 50 mg PEG TUBE 0900,1800 [facility] Last Admin: 05/05/17 09:27 Dose: 50 mg Vital Signs - 8 hr 05/05/17 05/05/17 05/05/17 03:53 07:29 08:00 Temperature 99.8 F Pulse Rate 95 Respiratory 20 16 Rate Blood Pressure 110/63 (mmHg) O2 Sat by Pulse 90 92 Oximetry 05/05/17 05/05/17 05/05/17 09:34 09:52 10:09 Temperature 98.3 F Pulse Rate 98 Respiratory 18 22 Rate Blood Pressure 121/65 (mmHg) O2 Sat by Pulse 85 92 Oximetry Oxygen Devices in Use Now: None Appearance: Elderly male speaking non-sense, squirming in bed, but NAD Eyes: No Scleral Icterus Ears/Nose/Mouth/Throat: Mucous Membranes Moist Respiratory: Symmetrical Chest Expansion and Respiratory Effort, Clear to Auscultation - anteriorly Cardiovascular: NL Sounds; No Murmurs; No JVD, No Edema, - - irregularly irregular, tachycardic Abdominal: NL Sounds; No Tenderness; No Distention Extremities: No Clubbing, Cyanosis Skin: No Rash or Ulcers, No Nodules or Sclerosis Neurological: - - confused Result Diagrams: 05/05/17 07:51 05/05/17 07:51 Microbiology and Other Data: Microbiology 05/04/17 14:52 Blood Culture - Preliminary Blood Venous Blood MRSA/MSSA (PCR) - Final Mrsa Negative S.aureus Negative 05/05/17 01:00 Legionella Urinary Antigen - Final Urine Negative Legionella 05/04/17 12:51 Blood Culture - Preliminary Blood Venous No Growth Day 1 05/04/17 11:52 Influenza Types A,B Antigen (HAILEY) - Final Nasal Specimen received for Influenza A/B Molecular testing 05/04/17 09:25 Nasal Screen MRSA (PCR)(HAILEY) - Final Nasal Mrsa Negative Assess/Plan/Problems-Billing Mr Lyons is a 71 yo M who has a h/o CVA in 03/2017, hydrocephalus s/p [employer]ING [employer] shunt, dementia, type II DM, HTN, HLD and bipolar disorder who [facility] and was found to have a PE. - Patient Problems (1) Afib Current Visit: Yes Status: Acute Code(s): I48.91 - UNSPECIFIED ATRIAL FIBRILLATION SNOMED Code(s): 75537468 Comment: This AM the patient went into rapid afib. He has no documented history of afib. I question if his CVA may be secondary to afib or if the afib is secondary to the PE. Will give IV digoxin as his BP is soft- monitor HR. Continue lovenox as above. (2) Pulmonary embolism Current Visit: Yes Status: Acute Code(s): I26.99 - OTHER PULMONARY EMBOLISM WITHOUT ACUTE COR PULMONALE SNOMED Code(s): 21809248 Comment: The patient is currently receiving lovenox 80mg SQ BID. Once his PEG placement is corrected can begin PT therapy. (3) Status post CVA Current Visit: Yes Status: Acute Code(s): Z86.73 - PRSNL HX OF TIA (TIA), AND CEREB INFRC W/O RESID DEFICITS SNOMED Code(s): 402267985 Comment: The patient sustained a CVA in 03/2017 with R hemiparesis. ? secondary to afib. Echo not good enough quality to identify PFO. Continue lovenox and ASA. PT/OT will need to be continued. (4) Diabetes Current Visit: Yes Status: Acute Code(s): E11.9 - TYPE 2 DIABETES MELLITUS WITHOUT COMPLICATIONS SNOMED Code(s): 58468268 (5) Bipolar 1 disorder Current Visit: Yes Status: Acute Code(s): F31.9 - BIPOLAR DISORDER, UNSPECIFIED SNOMED Code(s): 405987958 Comment: Continue seroquel and amitriptyline. (6) Dementia Current Visit: Yes Status: Acute Code(s): F03.90 - UNSPECIFIED DEMENTIA WITHOUT BEHAVIORAL DISTURBANCE SNOMED Code(s): 67082982 Comment: Continue supportive care. (7) Hydrocephalus Current Visit: Yes Status: Acute Code(s): G91.9 - HYDROCEPHALUS, UNSPECIFIED SNOMED Code(s): 482068337 Comment: No gross issues on CT scan. (8) DVT prophylaxis Current Visit: Yes Status: Acute Code(s): XBW6067 - SNOMED Code(s): 219117643 Comment: arelis (9) DNR (do not resuscitate) Current Visit: Yes Status: Acute
[2017-05-05] MEDS ORDERED: Digoxin IV* 0.5 MG/2 ML AMP (0.25 MG/ML) IV SLOW PU ONE ×2 (11:35→11:55)
[2017-05-05] MEDS: Pantoprazole IV* 40 MG IV SCH (12:26)
[2017-05-05] MEDS ORDERED: NS 0.9% 1000 ML* 1,000 ML IV ONE (13:42)
[2017-05-05] MEDS ORDERED: Iodixanol* (CONTRAST) 320 MG/ML 100 ML SDV IV ONE (17:39)
[2017-05-05] MEDS: Latanoprost 0.005%* 2.5 ml BTL BOTH EYES SCH (18:29)
[2017-05-05] MEDS: Atorvastatin* 80 MG TAB PO SCH (18:35)
--- NOTE | 2017-05-05 18:55 | RAD ---
Indication: Pulmonary embolus. Contrast: Administered 79.2 ml of VISIPAQUE 320 mg/ml CTA of the chest was performed after IV contrast administration. Coronal and sagittal reconstructed images were obtained. The pulmonary arterial tree is well opacified. There are filling defects in the pulmonary arteries bilaterally. Pulmonary embolus extends into the right upper lobe branches of the pulmonary artery, left lower lobe branches of the pulmonary artery. Bilateral pleural effusions are noted. Bibasilar atelectasis is noted. Pleural effusions are noted bilaterally. There may be some atelectasis or consolidation in the right lower lobe. Motion artifact degrades the images. The aorta demonstrates no evidence of aortic dissection. IMPRESSION: BILATERAL PULMONARY EMBOLUS. BILATERAL PLEURAL EFFUSIONS. BIBASILAR ATELECTASIS. EVALUATION OF LUNG MONTANO IS LIMITED DUE TO MOTION ARTIFACT.
[2017-05-05] MEDS: QUEtiapine TAB* 100 MG PO SCH (22:15)
[2017-05-06] MEDS: Insulin LISPRO* 1 UNITS UNIT SUBCUT SCH ×4 (00:55→18:03)
[2017-05-06] MEDS: NS 0.9% 1000 ML* 1,000 ML IV SCH ×2 (01:38→11:50)
[2017-05-06] MEDS: ZOSYN 3.375 GM Q8H per EXTENDED INFUSION IVPB SCH ×4 (01:38→09:58)
[2017-05-06] MEDS: Enoxaparin(*) 80 MG/0.8 ML SYR SUBCUT SCH ×2 (05:50→17:42)
[2017-05-06] MEDS: Aspirin Low Dose CHEW TAB* 81 MG PEG TUBE SCH (10:09)
[2017-05-06] MEDS: Dorzolamide/Timolol OPTH (NF) 10 ML BOT BOTH EYES SCH ×2 (10:09→20:58)
[2017-05-06] MEDS: Cholecalciferol TAB* 1000 UNITS PEG TUBE SCH (10:09)
[2017-05-06] MEDS: TIMOLOL BOTH EYES SCH ×2 (10:09→20:57)
[2017-05-06] MEDS: QUEtiapine TAB* 25 MG PEG TUBE SCH (10:09)
[2017-05-06] MEDS: BRIMONIDINE BOTH EYES SCH ×2 (10:09→20:57)
[2017-05-06] MEDS: Docusate CAP* 100 MG PO SCH (10:09)
[2017-05-06] MEDS: Amitriptyline TAB* 10 MG PEG TUBE SCH (10:09)
[2017-05-06] MEDS: Pantoprazole IV* 40 MG IV SCH (11:47)
--- NOTE | 2017-05-06 12:41 | PN ---
Subjective Date of Service: 05/06/17 Interval History: Pt is feeling ok. He shakes his head no to being in pain. He shakes his head no to being SOB. Nursing notes the patient has not been as agitated recently. Objective Active Medications: Acetaminophen (Tylenol Tab*) 650 mg PO Q4H PRN PRN Reason: FEVER/PAIN Amitriptyline HCl (Elavil Tab*) 30 mg PO DAILY [facility] Aspirin (Aspirin Low Dose Tab*) 81 mg PO DAILY [facility] Atorvastatin Calcium (Lipitor*) 80 mg PO 1700 [facility] Last Admin: 05/05/17 18:35 Dose: Not Given Brimonidine/Timolol (Combigan Ophth (Nf)) 1 drop BOTH EYES BID [facility] Last Admin: 05/06/17 10:09 Dose: Not Given Cholecalciferol (Vitamin D Tab*) 1,000 units PO DAILY [facility] Dextrose (D50w Syringe 50 Ml*) 12.5 gm IV PUSH .FOR FS < 60 - SS PRN PRN Reason: FS < 60 Docusate Sodium (Colace Cap*) 100 mg PO DAILY [facility] Last Admin: 05/06/17 10:09 Dose: 100 mg Dorzolamide/Timolol (Cosopt (Nf)) 1 drop BOTH EYES BID [facility] Last Admin: 05/06/17 10:09 Dose: Not Given Enoxaparin Sodium (Lovenox(*)) 80 mg SUBCUT Q12H [facility] Last Admin: 05/06/17 05:50 Dose: 80 mg Sodium Chloride (Ns 0.9% 1000 Ml*) 1,000 mls @ 100 mls/hr IV PER RATE [facility] Last Admin: 05/06/17 11:50 Dose: 100 mls/hr Piperacillin Sod/Tazobactam (Sod 3.375 gm/ Sodium Chloride) 100 mls @ 25 mls/ hr IVPB Q8H [facility] Stop: 05/06/17 17:29 Last Admin: 05/06/17 09:58 Dose: 25 mls/hr Piperacillin Sod/Tazobactam (Sod 13.5 gm/ Sodium Chloride) 500 mls @ 20.833 mls /hr IVPB Q24H [facility] Insulin Human Lispro (Humalog*) 0 units SUBCUT Q6HR LISA PRN Reason: Protocol Last Admin: 05/06/17 11:43 Dose: Not Given Latanoprost (Xalatan 0.005%*) 1 drop BOTH EYES QPM [facility] Last Admin: 05/05/17 18:29 Dose: Not Given Ondansetron HCl (Zofran Inj*) 4 mg IV Q6H PRN PRN Reason: NAUSEA Pantoprazole Sodium (Protonix Iv*) 40 mg IV Q24H [facility] Last Admin: 05/06/17 11:47 Dose: 40 mg Pharmacy Consult (Zosyn Per Pharmacy*) 1 note FOLLOW UP .ZOSYN PER PHARMACY [facility] Quetiapine Fumarate (Seroquel Tab*) 100 mg PO BEDTIME [facility] Last Admin: 05/05/17 22:15 Dose: Not Given Quetiapine Fumarate (Seroquel Tab*) 50 mg PO 0900,1800 [facility] Vital Signs - 8 hr 05/06/17 05/06/17 05/06/17 07:55 08:00 11:58 Temperature 98.4 F 97.8 F Pulse Rate 76 82 Respiratory 20 20 20 Rate Blood Pressure 125/61 135/74 (mmHg) O2 Sat by Pulse 94 92 90 Oximetry Oxygen Devices in Use Now: None Appearance: Elderly male sitting up in bed sleeping, awakens to voice, NAD Eyes: No Scleral Icterus Ears/Nose/Mouth/Throat: Mucous Membranes Moist, - - drooling noted out of R corner of mouth Respiratory: Symmetrical Chest Expansion and Respiratory Effort, Clear to Auscultation - anteriorly Cardiovascular: NL Sounds; No Murmurs; No JVD, RRR, No Edema Abdominal: NL Sounds; No Tenderness; No Distention Extremities: No Clubbing, Cyanosis Skin: No Rash or Ulcers, No Nodules or Sclerosis Neurological: - - sleepy but awakens Result Diagrams: 05/05/17 07:51 05/05/17 07:51 Microbiology and Other Data: Microbiology 05/04/17 14:52 Blood Culture - Preliminary Blood Venous Blood MRSA/MSSA (PCR) - Final Mrsa Negative S.aureus Negative 05/05/17 01:00 Legionella Urinary Antigen - Final Urine Negative Legionella 05/04/17 12:51 Blood Culture - Preliminary Blood Venous No Growth Day 1 05/04/17 11:52 Influenza Types A,B Antigen (HAILEY) - Final Nasal Specimen received for Influenza A/B Molecular testing 05/04/17 09:25 Nasal Screen MRSA (PCR)([facility]ILEY) - Final Nasal Mrsa Negative Assess/Plan/Problems-Billing Mr Lyons is a 71 yo M who has a h/o CVA in 03/2017, hydrocephalus s/p [employer]GER shunt, dementia, type II DM, HTN, HLD and bipolar disorder who [facility] and was found to have a PE. - Patient Problems (1) Enterococcus faecalis infection Current Visit: Yes Status: Acute Code(s): B95.2 - ENTEROCOCCUS THE CAUSE OF DISEASES CLASSIFIED ELSEWHERE SNOMED Code(s): 058845694 Comment: The patient has 1 of 2 bottles positive for enterococcus faecalis. Will send repeat BC now. Continue zosyn. ? secondary to GI source (ie vomiting secondary to PEG tube malposition) vs other. Will ask for ID consult. (2) Afib Current Visit: Yes Status: Acute Code(s): I48.91 - UNSPECIFIED ATRIAL FIBRILLATION SNOMED Code(s): 69835380 Comment: The patient spontaneously converted to NSR yesterday. Will start low dose metoprolol and continue lovneox for now. (3) Pulmonary embolism Current Visit: Yes Status: Acute Code(s): I26.99 - OTHER PULMONARY EMBOLISM WITHOUT ACUTE COR PULMONALE SNOMED Code(s): 45976632 Comment: The patient is currently receiving lovenox 80mg SQ BID. Once his PEG placement is corrected can begin PT therapy. (4) Status post CVA Current Visit: Yes Status: Acute Code(s): Z86.73 - PRSNL HX OF TIA (TIA), AND CEREB INFRC W/O RESID DEFICITS SNOMED Code(s): 213503176 Comment: The patient sustained a CVA in 03/2017 with R hemiparesis. ? secondary to afib. Echo not good enough quality to identify PFO. Continue lovenox and ASA. The patient had a PEG tube placed for severe dysphagia and currently the tip of the tube is in the duodenum. Dr. Mcgraw will see the patient and determine the best course of action to get his feeding tube fixed. Start PT/OT. (5) Diabetes Current Visit: Yes Status: Acute Code(s): E11.9 - TYPE 2 DIABETES MELLITUS WITHOUT COMPLICATIONS SNOMED Code(s): 02952087 Comment: Sugars are currently under very good control. Continue lispro sliding scale. (6) Bipolar 1 disorder Current Visit: Yes Status: Acute Code(s): F31.9 - BIPOLAR DISORDER, UNSPECIFIED SNOMED Code(s): 180750416 Comment: Continue seroquel and amitriptyline. (7) Dementia Current Visit: Yes Status: Acute Code(s): F03.90 - UNSPECIFIED DEMENTIA WITHOUT BEHAVIORAL DISTURBANCE SNOMED Code(s): 33210334 Comment: Continue supportive care. (8) Hydrocephalus Current Visit: Yes Status: Acute Code(s): G91.9 - HYDROCEPHALUS, UNSPECIFIED SNOMED Code(s): 744481340 Comment: No gross issues on CT scan. (9) DVT prophylaxis Current Visit: Yes Status: Acute Code(s): ZMV6145 - SNOMED Code(s): 105988409 Comment: lovenox (10) DNR (do not resuscitate) Current Visit: Yes Status: Acute
[2017-05-06] MEDS: Metoprolol Tartrate TAB* 25 MG PO SCH ×2 (13:22→20:58)
[2017-05-06] MEDS: Piperacillin/Tazobactam 13.5 GM IV 24 hour continuous infusion IVPB SCH ×2 (17:41)
[2017-05-06] MEDS: Atorvastatin* 80 MG TAB PO SCH (17:44)
[2017-05-06] MEDS: Latanoprost 0.005%* 2.5 ml BTL BOTH EYES SCH (17:46)
[2017-05-06] MEDS: QUEtiapine TAB* 25 MG PO SCH (17:46)
--- NOTE | 2017-05-06 20:15 | PN ---
Progress Note - Progress Note Date of Service: 05/06/17 - Gastroenterology Note: Patient seen and examined. G-tube being used for meds only. Gastrograffin showed g-tube in duodenum. No abdominal pain. No emesis. Tolerating meds. Vital Signs: Temp Pulse Resp BP Pulse Ox 97.3 F 63 20 133/68 95 05/06/17 15:29 05/06/17 15:29 05/06/17 11:58 05/06/17 15:29 05/06/17 16:00 GENERAL: Alert and oriented to person. HEENT: MMM. CV: RRR. PULM: CTAB. ABDOMEN: Soft, NT/ND. G-tube appears to be in position. C/D/I. Laboratory Last Values WBC 13.9 10^3/ul (3.5-10.8) H 05/05/17 07:51 RBC 3.85 10^6/ul (4.0-5.4) L 05/05/17 07:51 Hgb 11.3 g/dl (14.0-18.0) L 05/05/17 07:51 Hct 34 % (42-52) L 05/05/17 07:51 MCV 88 fL (80-94) 05/05/17 07:51 MCH 29 pg (27-31) 05/05/17 07:51 MCHC 34 g/dl (31-36) 05/05/17 07:51 RDW 14 % (10.5-15) 05/05/17 07:51 Plt Count 171 10^3/ul (150-450) 05/05/17 07:51 MPV 9 um3 (7.4-10.4) 05/05/17 07:51 Neut % (Auto) 86.7 % (38-83) H 05/05/17 07:51 Lymph % (Auto) 5.0 % (25-47) L 05/05/17 07:51 [place] % (Auto) 7.7 % (1-9) 05/05/17 07:51 Eos % (Auto) 0.2 % (0-6) 05/05/17 07:51 Baso % (Auto) 0.4 % (0-2) 05/05/17 07:51 Absolute Neuts (auto) 12.1 10^3/ul (1.5-7.7) H 05/05/17 07:51 Absolute Lymphs (auto) 0.7 10^3/ul (1.0-4.8) L 05/05/17 07:51 Absolute Monos (auto) 1.1 10^3/ul (0-0.8) H 05/05/17 07:51 Absolute Eos (auto) 0 10^3/ul (0-0.6) 05/05/17 07:51 Absolute Basos (auto) 0.1 10^3/ul (0-0.2) 05/05/17 07:51 Absolute Nucleated RBC 0 10^3/ul 05/05/17 07:51 Nucleated RBC % 0 05/05/17 07:51 INR (Anticoag Therapy) 1.29 (0.77-1.02) H 05/05/17 07:51 APTT 29.2 seconds (26.0-36.3) 05/04/17 05:35 Sodium 144 mmol/L (133-145) 05/05/17 07:51 Potassium 3.5 mmol/L (3.5-5.0) 05/05/17 07:51 Chloride 109 mmol/L (101-111) 05/05/17 07:51 Carbon Dioxide 27 mmol/L (22-32) 05/05/17 07:51 Anion Gap 8 mmol/L (2-11) 05/05/17 07:51 BUN 29 mg/dL (6-24) H 05/05/17 07:51 Creatinine 0.89 mg/dL (0.67-1.17) 05/05/17 07:51 Est GFR ( Amer) 107.8 (>60) 05/05/17 07:51 Est GFR (Non-Af Amer) 83.8 (>60) 05/05/17 07:51 BUN/Creatinine Ratio 32.6 (8-20) H 05/05/17 07:51 Glucose 127 mg/dL (70-100) H 05/05/17 07:51 POC Glucose (mg/dL) 115 mg/dL (70-100) H 05/06/17 17:30 Lactic Acid 2.2 mmol/L (0.5-2.0) H* 05/04/17 14:52 Calcium 8.3 mg/dL (8.6-10.3) L 05/05/17 07:51 Magnesium 1.5 mg/dL (1.9-2.7) L 05/04/17 05:35 Total Bilirubin 0.70 mg/dL (0.2-1.0) 05/04/17 05:35 AST 12 U/L (13-39) L 05/04/17 05:35 ALT 16 U/L (7-52) 05/04/17 05:35 Alkaline Phosphatase 72 U/L (34-104) 05/04/17 05:35 Lactate Dehydrogenase 242 U/L (140-271) 05/04/17 05:35 Total Creatine Kinase 44 U/L (10-223) 05/04/17 05:35 Troponin I 0.02 ng/mL (<0.04) 05/04/17 17:51 C-Reactive Protein 36.04 mg/L (< 5.00) H 05/04/17 05:35 Total Protein 6.4 g/dL (6.4-8.9) 05/04/17 05:35 Albumin 3.6 g/dL (3.2-5.2) 05/04/17 05:35 Globulin 2.8 g/dL (2-4) 05/04/17 05:35 Albumin/Globulin Ratio 1.3 (1-3) 05/04/17 05:35 Amylase 50 U/L (29-103) 05/04/17 05:35 Lipase 36 U/L (11.0-82.0) 05/04/17 05:35 Urine Color Yellow 05/05/17 01:00 Urine Appearance Clear 05/05/17 01:00 Urine pH 7.0 (5-9) 05/05/17 01:00 Ur Specific [place] 1.028 (1.010-1.030) 05/05/17 01:00 Urine Protein 1+(30 mg/dl) (Negative) H 05/05/17 01:00 Urine Ketones Trace (Negative) H 05/05/17 01:00 Urine Blood Negative (Negative) 05/05/17 01:00 Urine Nitrate Negative (Negative) 05/05/17 01:00 Urine Bilirubin Negative (Negative) 05/05/17 01:00 Urine Urobilinogen Positive (Negative) H 05/05/17 01:00 Ur Leukocyte Esterase Negative (Negative) 05/05/17 01:00 Urine WBC (Auto) 1+(6-10/hpf) (Absent) H 05/05/17 01:00 Urine RBC (Auto) Absent (Absent) 05/05/17 01:00 Urine Bacteria Absent (Absent) 05/05/17 01:00 Urine Glucose Negative (Negative) 05/05/17 01:00 Influenza A (Rapid) Negative (Negative) 05/04/17 16:35 Influenza B (Rapid) Negative (Negative) 05/04/17 16:35 71 yo male with multiple co-morbidities with PE on Lovenox with G-tube displacement causing a gastric outlet obstruction. 1. Gastric outlet obstruction with g-tube displacement ~Gastrograffin on 05/04/17 revealed G-tube in duodenum after readjusting G-tube. ~Today at bedside replaced 18F Kangaroo g-tube with 16F Kangaroo G-tube without complications. Bumper was set at 6cm. ~Ordered KUB with gastrograffin to check for position of new G-tube. If it is proper placement, may start feedings tonight. D/w RN and Dr. Gary. Please call us with any further questions or concerns. Will follow-up tomorrow. Yamila Mcgraw D.O.
--- NOTE | 2017-05-06 20:39 | RAD ---
Indication: G-tube placement. Single view of the abdomen demonstrates feeding tube to be within the stomach. Contrast is noted in the duodenum. IMPRESSION: G-tube appears to be within the stomach.
[2017-05-06] MEDS: QUEtiapine TAB* 100 MG PO SCH (20:58)
[2017-05-07] MEDS: Insulin LISPRO* 1 UNITS UNIT SUBCUT SCH ×5 (00:07→23:56)
[2017-05-07] MEDS: Enoxaparin(*) 80 MG/0.8 ML SYR SUBCUT SCH ×2 (05:41→18:17)
[2017-05-07 05:59] LABS: ABS Basophils 0 10^3/ul (0-0.2); ABS Eosinophils 0.2 10^3/ul (0-0.6); ABS Lymphocytes 0.9 10^3/ul (1.0-4.8); ABS Monocytes 0.5 10^3/ul (0-0.8); ABS Neutrophils 4.1 10^3/ul (1.5-7.7); ABS Nucleated RBC 0 10^3/ul; Eosinophil % 3.2 % (0-6); Hematocrit 33 % (42-52); Hemoglobin 10.9 g/dl (14.0-18.0); Lymphocyte % 16.4 % (25-47); Mean Corpuscular HGB Conc 34 g/dl (31-36); Mean Corpuscular Hemoglobin 30 pg (27-31); Mean Corpuscular Volume 89 fL (80-94); Mean Platelet Volume 10 um3 (7.4-10.4); Nucleated Red Blood Cells % 0.1; Platelet Count 161 10^3/ul (150-450); Red Blood Count 3.64 10^6/ul (4.0-5.4); Red Cell Distribution Width 14 % (10.5-15); White Blood Count 5.8 10^3/ul (3.5-10.8)
[2017-05-07 06:10] LABS: EGFR Non-African American 100.5 (>60)
[2017-05-07] MEDS: Metoprolol Tartrate TAB* 25 MG PO SCH ×2 (09:12→21:06)
[2017-05-07] MEDS: D5W 1/2 NS 1000 ML BAG* 1,000 ML IV SCH (09:20)
[2017-05-07] MEDS: QUEtiapine TAB* 25 MG PO SCH ×2 (09:32→18:16)
[2017-05-07] MEDS: Aspirin Low Dose CHEW TAB* 81 MG PO SCH (09:32)
[2017-05-07] MEDS: Amitriptyline TAB* 10 MG PO SCH (09:32)
[2017-05-07] MEDS: Docusate CAP* 100 MG PO SCH (09:32)
[2017-05-07] MEDS: Dorzolamide/Timolol OPTH (NF) 10 ML BOT BOTH EYES SCH ×2 (09:33→21:06)
[2017-05-07] MEDS: TIMOLOL BOTH EYES SCH ×2 (09:33→21:06)
[2017-05-07] MEDS: BRIMONIDINE BOTH EYES SCH ×2 (09:33→21:06)
[2017-05-07] MEDS: Cholecalciferol TAB* 1000 UNITS PO SCH (09:33)
[2017-05-07] MEDS: Pantoprazole IV* 40 MG IV SCH (13:42)
[2017-05-07] MEDS ORDERED: Potassium Chloride LIQUID* 20 MEQ PACKET G TUBE ONE (15:30)
[2017-05-07] MEDS ORDERED: Potassium Chloride LIQUID* 20 MEQ PACKET PO ONE (15:30)
[2017-05-07] MEDS ORDERED: Warfarin TAB(*) 5 MG PO ONE (17:00)
--- NOTE | 2017-05-07 17:56 | PN ---
Subjective Date of Service: 05/07/17 - Gatroenterology - Subjective Subjective: Patient seen and examined. No new overnight issues. No abdominal pain. Tube feedings started and tolerating without issues. Tolerating pleasure feedings. No emesis. Vital Signs: Temp Pulse Resp BP Pulse Ox 97.4 F 61 20 142/77 93 05/07/17 11:15 05/07/17 07:40 05/07/17 08:00 05/07/17 07:40 05/07/17 08:00 GENERAL: NAD. HEENT: MMM. CV: RRR. PULM: CTAB. ABDOMEN: G-tube C/D/I. Laboratory Last Values WBC 5.8 10^3/ul (3.5-10.8) 05/07/17 05:30 RBC 3.64 10^6/ul (4.0-5.4) L 05/07/17 05:30 Hgb 10.9 g/dl (14.0-18.0) L 05/07/17 05:30 Hct 33 % (42-52) L 05/07/17 05:30 MCV 89 fL (80-94) 05/07/17 05:30 MCH 30 pg (27-31) 05/07/17 05:30 MCHC 34 g/dl (31-36) 05/07/17 05:30 RDW 14 % (10.5-15) 05/07/17 05:30 Plt Count 161 10^3/ul (150-450) 05/07/17 05:30 MPV 10 um3 (7.4-10.4) 05/07/17 05:30 Neut % (Auto) 70.7 % (38-83) 05/07/17 05:30 Lymph % (Auto) 16.4 % (25-47) L 05/07/17 05:30 Meigs % (Auto) 8.9 % (1-9) 05/07/17 05:30 Eos % (Auto) 3.2 % (0-6) 05/07/17 05:30 Baso % (Auto) 0.8 % (0-2) 05/07/17 05:30 Absolute Neuts (auto) 4.1 10^3/ul (1.5-7.7) 05/07/17 05:30 Absolute Lymphs (auto) 0.9 10^3/ul (1.0-4.8) L 05/07/17 05:30 Absolute Monos (auto) 0.5 10^3/ul (0-0.8) 05/07/17 05:30 Absolute Eos (auto) 0.2 10^3/ul (0-0.6) 05/07/17 05:30 Absolute Basos (auto) 0 10^3/ul (0-0.2) 05/07/17 05:30 Absolute Nucleated RBC 0 10^3/ul 05/07/17 05:30 Nucleated RBC % 0.1 05/07/17 05:30 INR (Anticoag Therapy) 1.29 (0.77-1.02) H 05/05/17 07:51 APTT 29.2 seconds (26.0-36.3) 05/04/17 05:35 Sodium 147 mmol/L (133-145) H 05/07/17 05:30 Potassium 3.1 mmol/L (3.5-5.0) L 05/07/17 05:30 Chloride 116 mmol/L (101-111) H 05/07/17 05:30 Carbon Dioxide 21 mmol/L (22-32) L 05/07/17 05:30 Anion Gap 10 mmol/L (2-11) 05/07/17 05:30 BUN 27 mg/dL (6-24) H 05/07/17 05:30 Creatinine 0.76 mg/dL (0.67-1.17) 05/07/17 05:30 Est GFR ( Amer) 129.3 (>60) 05/07/17 05:30 Est GFR (Non-Af Amer) 100.5 (>60) 05/07/17 05:30 BUN/Creatinine Ratio 35.5 (8-20) H 05/07/17 05:30 Glucose 85 mg/dL (70-100) 05/07/17 05:30 POC Glucose (mg/dL) 147 mg/dL (70-100) H 05/07/17 12:11 Lactic Acid 2.2 mmol/L (0.5-2.0) H* 05/04/17 14:52 Calcium 7.8 mg/dL (8.6-10.3) L 05/07/17 05:30 Magnesium 1.5 mg/dL (1.9-2.7) L 05/04/17 05:35 Total Bilirubin 0.70 mg/dL (0.2-1.0) 05/04/17 05:35 AST 12 U/L (13-39) L 05/04/17 05:35 ALT 16 U/L (7-52) 05/04/17 05:35 Alkaline Phosphatase 72 U/L (34-104) 05/04/17 05:35 Lactate Dehydrogenase 242 U/L (140-271) 05/04/17 05:35 Total Creatine Kinase 44 U/L (10-223) 05/04/17 05:35 Troponin I 0.02 ng/mL (<0.04) 05/04/17 17:51 C-Reactive Protein 36.04 mg/L (< 5.00) H 05/04/17 05:35 Total Protein 6.4 g/dL (6.4-8.9) 05/04/17 05:35 Albumin 3.6 g/dL (3.2-5.2) 05/04/17 05:35 Globulin 2.8 g/dL (2-4) 05/04/17 05:35 Albumin/Globulin Ratio 1.3 (1-3) 05/04/17 05:35 Amylase 50 U/L (29-103) 05/04/17 05:35 Lipase 36 U/L (11.0-82.0) 05/04/17 05:35 Urine Color Yellow 05/05/17 01:00 Urine Appearance Clear 05/05/17 01:00 Urine pH 7.0 (5-9) 05/05/17 01:00 Ur Specific Crouse 1.028 (1.010-1.030) 05/05/17 01:00 Urine Protein 1+(30 mg/dl) (Negative) H 05/05/17 01:00 Urine Ketones Trace (Negative) H 05/05/17 01:00 Urine Blood Negative (Negative) 05/05/17 01:00 Urine Nitrate Negative (Negative) 05/05/17 01:00 Urine Bilirubin Negative (Negative) 05/05/17 01:00 Urine Urobilinogen Positive (Negative) H 05/05/17 01:00 Ur Leukocyte Esterase Negative (Negative) 05/05/17 01:00 Urine WBC (Auto) 1+(6-10/hpf) (Absent) H 05/05/17 01:00 Urine RBC (Auto) Absent (Absent) 05/05/17 01:00 Urine Bacteria Absent (Absent) 05/05/17 01:00 Urine Glucose Negative (Negative) 05/05/17 01:00 Influenza A (Rapid) Negative (Negative) 05/04/17 16:35 Influenza B (Rapid) Negative (Negative) 05/04/17 16:35 71 yo male with multiple co-morbidities with PE on Lovenox with G-tube displacement causing a gastric outlet obstruction. 1. Gastric outlet obstruction with g-tube displacement ~Gastrograffin on 05/04/17 revealed G-tube in duodenum after readjusting G-tube. ~Replaced 18F Kangaroo g-tube with 16F Kangaroo g-tube without complications at bedside on 05/06/17. ~KUB confirmed proper placement and tolerating tube feedings without issues today. ~18F Kangaroo g-tube was placed on order in case any issues arise with the 16F g -tube. Please call us with any further questions or concerns. Yamila Mcgraw D.O. Weight: 190 lb 12.8 oz Medication Orders: Current Medications Acetaminophen (Tylenol Tab*) 650 mg PO Q4H PRN PRN Reason: FEVER/PAIN Amitriptyline HCl (Elavil Tab*) 30 mg PO DAILY [facility] Last Admin: 05/07/17 09:32 Dose: 30 mg Aspirin (Aspirin Low Dose Tab*) 81 mg PO DAILY [facility] Last Admin: 05/07/17 09:32 Dose: 81 mg Atorvastatin Calcium (Lipitor*) 80 mg PO 1700 [facility] Last Admin: 05/06/17 17:44 Dose: Not Given Brimonidine/Timolol (Combigan Ophth (Nf)) 1 drop BOTH EYES BID [facility] Last Admin: 05/07/17 09:33 Dose: 1 drop Cholecalciferol (Vitamin D Tab*) 1,000 units PO DAILY [facility] Last Admin: 05/07/17 09:33 Dose: 1,000 units Dextrose (D50w Syringe 50 Ml*) 12.5 gm IV PUSH .FOR FS < 60 - SS PRN PRN Reason: FS < 60 Docusate Sodium (Colace Cap*) 100 mg PO DAILY [facility] Last Admin: 05/07/17 09:32 Dose: 100 mg Dorzolamide/Timolol (Cosopt (Nf)) 1 drop BOTH EYES BID [facility] Last Admin: 05/07/17 09:33 Dose: Not Given Enoxaparin Sodium (Lovenox(*)) 80 mg SUBCUT Q12H [facility] Last Admin: 05/07/17 05:41 Dose: 80 mg Piperacillin Sod/Tazobactam (Sod 13.5 gm/ Sodium Chloride) 500 mls @ 20.833 mls /hr IVPB Q24H [facility] Last Admin: 05/06/17 17:41 Dose: 20.833 mls/hr Dextrose/Sodium Chloride (D5w 1/2 Ns 1000 Ml Bag*) 1,000 mls @ 50 mls/hr IV PER RATE [facility] Last Admin: 05/07/17 09:20 Dose: 50 mls/hr Insulin Human Lispro (Humalog*) 0 units SUBCUT Q6HR [facility] PRN Reason: Protocol Last Admin: 05/07/17 13:42 Dose: 2 units Latanoprost (Xalatan 0.005%*) 1 drop BOTH EYES QPM [facility] Last Admin: 05/06/17 17:46 Dose: Not Given Metoprolol Tartrate (Lopressor Tab*) 12.5 mg PO Q12HR [facility] Last Admin: 05/07/17 09:12 Dose: Not Given Ondansetron HCl (Zofran Inj*) 4 mg IV Q6H PRN PRN Reason: NAUSEA Pantoprazole Sodium (Protonix Iv*) 40 mg IV Q24H [facility] Last Admin: 05/07/17 13:42 Dose: 40 mg Pharmacy Consult (Zosyn Per Pharmacy*) 1 note FOLLOW UP .ZOSYN PER PHARMACY [facility] Pharmacy Profile Note (Coumadin Daily Reminder*) 1 note FOLLOW UP 1700 [facility] Quetiapine Fumarate (Seroquel Tab*) 100 mg PO BEDTIME [facility] Last Admin: 05/06/17 20:58 Dose: 100 mg Quetiapine Fumarate (Seroquel Tab*) 50 mg PO 0900,1800 [facility] Last Admin: 05/07/17 09:32 Dose: 50 mg Home Medications: Home Medications Medication Instructions Recorded Confirmed Type Acetaminophen [Acetaminophen Extra 500 mg PEG TUBE TID 05/04/17 05/04/17 History Stren] Amitriptyline HCl [Elavil] 30 mg PEG TUBE DAILY 05/04/17 05/04/17 History Aspirin 81 mg PEG TUBE DAILY 05/04/17 05/04/17 History Atorvastatin* [Lipitor*] 80 mg PO 1700 05/04/17 05/04/17 History Bisacodyl [Dulcolax] 10 mg TX DAILY PRN 05/04/17 05/04/17 History Brimonid/Timolol 0.2/0.5%(NF) 1 drop BOTH EYES BID 05/04/17 05/04/17 History [Combigan 0.2/0.5% (NF)] Calcium Ascorbate [Vitamin C] 500 mg PEG TUBE DAILY 05/04/17 05/04/17 History Cholecalciferol [Vitamin D] 1,000 unit PEG TUBE DAILY 05/04/17 05/04/17 History Clopidogrel Bisulfate [Plavix] 75 mg PO DAILY 05/04/17 05/04/17 History Cosopt 22.3-6.8 mg/ml 1 drop BOTH EYES BID 05/04/17 05/04/17 History Docusate Sodium [Colace] 100 mg PEG TUBE DAILY 05/04/17 05/04/17 History Famotidine SUSP* [Pepcid SUSP*] 40 mg PEG TUBE DAILY 05/04/17 05/04/17 History Insulin Regular (Human) [Novolin R 05/04/17 History Relion] Latanoprost 0.005%* [Xalatan 1 drop BOTH EYES QPM 05/04/17 05/04/17 History 0.005%*] Metformin HCl 500 mg PEG TUBE BID 05/04/17 05/04/17 History Multiple Vitamins W/ Minerals 1 tab PEG TUBE DAILY 05/04/17 05/04/17 History [Multivitamin Adults] Nutritional Supplements [Glucerna 1 liq PO TID 05/04/17 05/04/17 History 1.2 Primo] QUEtiapine TAB* [SEROquel TAB*] 100 mg PO BEDTIME 05/04/17 05/04/17 History Quetiapine Fumarate [Seroquel] 50 mg PEG TUBE BID 05/04/17 05/04/17 History Results/Investigations Lab Results: 05/05/17 05/05/17 05/06/17 18:21 23:28 05:49 WBC RBC Hgb Hct MCV MCH MCHC RDW Plt Count MPV Neut % (Auto) Lymph % (Auto) Meigs % (Auto) Eos % (Auto) Baso % (Auto) Absolute Neuts (auto) Absolute Lymphs (auto) Absolute Monos (auto) Absolute Eos (auto) Absolute Basos (auto) Absolute Nucleated RBC Nucleated RBC % Sodium Potassium Chloride Carbon Dioxide Anion Gap BUN Creatinine Est GFR ( Amer) Est GFR (Non-Af Amer) BUN/Creatinine Ratio Glucose POC Glucose (mg/dL) 100 84 84 Calcium 05/06/17 05/06/17 05/06/17 11:41 17:30 23:56 WBC RBC Hgb Hct MCV MCH MCHC RDW Plt Count MPV Neut % (Auto) Lymph % (Auto) Meigs % (Auto) Eos % (Auto) Baso % (Auto) Absolute Neuts (auto) Absolute Lymphs (auto) Absolute Monos (auto) Absolute Eos (auto) Absolute Basos (auto) Absolute Nucleated RBC Nucleated RBC % Sodium Potassium Chloride Carbon Dioxide Anion Gap BUN Creatinine Est GFR ( Amer) Est GFR (Non-Af Amer) BUN/Creatinine Ratio Glucose POC Glucose (mg/dL) 123 H 115 H 99 Calcium 05/07/17 05/07/17 05/07/17 05:04 05:30 05:30 WBC 5.8 RBC 3.64 L Hgb 10.9 L Hct 33 L MCV 89 MCH 30 MCHC 34 RDW 14 Plt Count 161 MPV 10 Neut % (Auto) 70.7 Lymph % (Auto) 16.4 L Meigs % (Auto) 8.9 Eos % (Auto) 3.2 Baso % (Auto) 0.8 Absolute Neuts (auto) 4.1 Absolute Lymphs (auto) 0.9 L Absolute Monos (auto) 0.5 Absolute Eos (auto) 0.2 Absolute Basos (auto) 0 Absolute Nucleated RBC 0 Nucleated RBC % 0.1 Sodium 147 H Potassium 3.1 L Chloride 116 H Carbon Dioxide 21 L Anion Gap 10 BUN 27 H Creatinine 0.76 Est GFR ( Amer) 129.3 Est GFR (Non-Af Amer) 100.5 BUN/Creatinine Ratio 35.5 H Glucose 85 POC Glucose (mg/dL) 95 Calcium 7.8 L 05/07/17 12:11 WBC RBC Hgb Hct MCV MCH MCHC RDW Plt Count MPV Neut % (Auto) Lymph % (Auto) Meigs % (Auto) Eos % (Auto) Baso % (Auto) Absolute Neuts (auto) Absolute Lymphs (auto) Absolute Monos (auto) Absolute Eos (auto) Absolute Basos (auto) Absolute Nucleated RBC Nucleated RBC % Sodium Potassium Chloride Carbon Dioxide Anion Gap BUN Creatinine Est GFR ( Amer) Est GFR (Non-Af Amer) BUN/Creatinine Ratio Glucose POC Glucose (mg/dL) 147 H Calcium Vitals Vital Signs: Vital Signs 05/06/17 05/06/17 05/06/17 19:20 19:39 20:00 Temperature Pulse Rate 37 66 Respiratory 16 16 Rate Blood Pressure 123/64 (mmHg) O2 Sat by Pulse 82 95 Oximetry 05/06/17 05/07/17 05/07/17 23:54 00:00 04:02 Temperature 98.1 F 98.3 F Pulse Rate 61 62 Respiratory 18 18 Rate Blood Pressure 137/71 126/90 (mmHg) O2 Sat by Pulse 93 93 97 Oximetry 05/07/17 05/07/17 05/07/17 07:40 08:00 08:12 Temperature 97.5 F Pulse Rate 61 Respiratory 20 20 Rate Blood Pressure 142/77 (mmHg) O2 Sat by Pulse 93 93 Oximetry 05/07/17 11:15 Temperature 97.4 F Pulse Rate Respiratory Rate Blood Pressure (mmHg) O2 Sat by Pulse Oximetry Patient Problems: Patient Problems Problem Status Onset Code Afib Acute I48.91 Bipolar 1 disorder Acute F31.9 DNR (do not resuscitate) Acute DVT prophylaxis Acute [id number] Dementia Acute F03.90 Diabetes Acute E11.9 Enterococcus faecalis infection Acute B95.2 Hydrocephalus Acute G91.9 Pulmonary embolism Acute I26.99 Status post CVA Acute Z86.73 Glaucoma Acute H40.9 H/O hernia repair Acute Z98.890, Z87.19 High cholesterol Acute E78.00 History of brain shunt Acute Z98.890, Z98.2 Hx pulmonary embolism Acute Z86.711
[2017-05-07] MEDS: Atorvastatin* 80 MG TAB PO SCH (18:16)
[2017-05-07] MEDS: Latanoprost 0.005%* 2.5 ml BTL BOTH EYES SCH (18:17)
--- NOTE | 2017-05-07 19:48 | PN ---
Subjective Date of Service: 05/07/17 Interval History: Pt repeatedly asks for ice water. He denies pain and SOB. Objective Active Medications: Acetaminophen (Tylenol Tab*) 650 mg PO Q4H PRN PRN Reason: FEVER/PAIN Amitriptyline HCl (Elavil Tab*) 30 mg PO DAILY [facility] Last Admin: 05/07/17 09:32 Dose: 30 mg Aspirin (Aspirin Low Dose Tab*) 81 mg PO DAILY [facility] Last Admin: 05/07/17 09:32 Dose: 81 mg Atorvastatin Calcium (Lipitor*) 80 mg PO 1700 [facility] Last Admin: 05/07/17 18:16 Dose: Not Given Brimonidine/Timolol (Combigan Ophth (Nf)) 1 drop BOTH EYES BID [facility] Last Admin: 05/07/17 09:33 Dose: 1 drop Cholecalciferol (Vitamin D Tab*) 1,000 units PO DAILY [facility] Last Admin: 05/07/17 09:33 Dose: 1,000 units Dextrose (D50w Syringe 50 Ml*) 12.5 gm IV PUSH .FOR FS < 60 - SS PRN PRN Reason: FS < 60 Docusate Sodium (Colace Cap*) 100 mg PO DAILY [facility] Last Admin: 05/07/17 09:32 Dose: 100 mg Dorzolamide/Timolol (Cosopt (Nf)) 1 drop BOTH EYES BID [facility] Last Admin: 05/07/17 09:33 Dose: Not Given Enoxaparin Sodium (Lovenox(*)) 80 mg SUBCUT Q12H [facility] Last Admin: 05/07/17 18:17 Dose: 80 mg Piperacillin Sod/Tazobactam (Sod 13.5 gm/ Sodium Chloride) 500 mls @ 20.833 mls /hr IVPB Q24H [facility] Last Admin: 05/06/17 17:41 Dose: 20.833 mls/hr Dextrose/Sodium Chloride (D5w 1/2 Ns 1000 Ml Bag*) 1,000 mls @ 50 mls/hr IV PER RATE [facility] Last Admin: 05/07/17 09:20 Dose: 50 mls/hr Insulin Human Lispro (Humalog*) 0 units SUBCUT Q6HR [facility] PRN Reason: Protocol Last Admin: 05/07/17 19:35 Dose: 6 units Latanoprost (Xalatan 0.005%*) 1 drop BOTH EYES QPM [facility] Last Admin: 05/07/17 18:17 Dose: 1 drop Metoprolol Tartrate (Lopressor Tab*) 12.5 mg PO Q12HR [facility] Last Admin: 05/07/17 09:12 Dose: Not Given Ondansetron HCl (Zofran Inj*) 4 mg IV Q6H PRN PRN Reason: NAUSEA Pantoprazole Sodium (Protonix Iv*) 40 mg IV Q24H [facility] Last Admin: 05/07/17 13:42 Dose: 40 mg Pharmacy Consult (Zosyn Per Pharmacy*) 1 note FOLLOW UP .ZOSYN PER PHARMACY [facility] Pharmacy Profile Note (Coumadin Daily Reminder*) 1 note FOLLOW UP 1700 [facility] Quetiapine Fumarate (Seroquel Tab*) 100 mg PO BEDTIME [facility] Last Admin: 05/06/17 20:58 Dose: 100 mg Quetiapine Fumarate (Seroquel Tab*) 50 mg PO 0900,1800 [facility] Last Admin: 05/07/17 18:16 Dose: 50 mg Oxygen Devices in Use Now: Nasal Cannula Appearance: Elderly male sitting up in bed, NAD Eyes: No Scleral Icterus Ears/Nose/Mouth/Throat: Mucous Membranes Moist Respiratory: Symmetrical Chest Expansion and Respiratory Effort, Clear to Auscultation Cardiovascular: NL Sounds; No Murmurs; No JVD, RRR, No Edema Abdominal: NL Sounds; No Tenderness; No Distention Extremities: No Clubbing, Cyanosis Skin: No Nodules or Sclerosis Neurological: - - pleasantly confused, does not move R arm/leg Result Diagrams: 05/07/17 05:30 05/07/17 05:30 Microbiology and Other Data: Microbiology 05/04/17 14:52 Blood Culture - Preliminary Blood Venous Blood MRSA/MSSA (PCR) - Final Mrsa Negative S.aureus Negative 05/05/17 01:00 Legionella Urinary Antigen - Final Urine Negative Legionella 05/04/17 12:51 Blood Culture - Preliminary Blood Venous No Growth Day 1 05/04/17 11:52 Influenza Types A,B Antigen (HAILEY) - Final Nasal Specimen received for Influenza A/B Molecular testing 05/04/17 09:25 Nasal Screen MRSA (PCR)(HAILEY) - Final Nasal Mrsa Negative Assess/Plan/Problems-Billing Mr Lyons is a 71 yo M who has a h/o CVA in 03/2017, hydrocephalus s/p COMBINATION WELDER shunt, dementia, type II DM, HTN, HLD and bipolar disorder who [facility] and was found to have a PE. - Patient Problems (1) Enterococcus faecalis infection Current Visit: Yes Status: Acute Code(s): B95.2 - ENTEROCOCCUS THE CAUSE OF DISEASES CLASSIFIED ELSEWHERE SNOMED Code(s): 238822950 Comment: Repeat blood cultures negative so far. Continue zosyn and monitor for source of infection. I spoke with ID and no further recommendations at this time. (2) Afib Current Visit: Yes Status: Acute Code(s): I48.91 - UNSPECIFIED ATRIAL FIBRILLATION SNOMED Code(s): 56174255 Comment: The patient remains in NSR. Continue low dose metoprolol and lovenox bridging to coumadin. (3) Pulmonary embolism Current Visit: Yes Status: Acute Code(s): I26.99 - OTHER PULMONARY EMBOLISM WITHOUT ACUTE COR PULMONALE SNOMED Code(s): 58158368 Comment: The patient is currently receiving lovenox 80mg SQ BID. Start coumadin tonight. (4) Status post CVA Current Visit: Yes Status: Acute Code(s): Z86.73 - PRSNL HX OF TIA (TIA), AND CEREB INFRC W/O RESID DEFICITS SNOMED Code(s): 762966707 Comment: The patient sustained a CVA in 03/2017 with R hemiparesis. ? secondary to afib. Continue ASA and lovenox bridge to coumadin. PEG replaced last evening and now functioning without difficulty. Swallow eval this evening. (5) Diabetes Current Visit: Yes Status: Acute Code(s): E11.9 - TYPE 2 DIABETES MELLITUS WITHOUT COMPLICATIONS SNOMED Code(s): 80849198 Comment: Sugars are up some. Restart metformin 500mg BID. Continue lispro sliding scale. (6) Bipolar 1 disorder Current Visit: Yes Status: Acute Code(s): F31.9 - BIPOLAR DISORDER, UNSPECIFIED SNOMED Code(s): 401999926 Comment: Continue seroquel and amitriptyline. (7) Dementia Current Visit: Yes Status: Acute Code(s): F03.90 - UNSPECIFIED DEMENTIA WITHOUT BEHAVIORAL DISTURBANCE SNOMED Code(s): 99396108 Comment: Continue supportive care. (8) Hydrocephalus Current Visit: Yes Status: Acute Code(s): G91.9 - HYDROCEPHALUS, UNSPECIFIED SNOMED Code(s): 287512891 Comment: No gross issues on CT scan. (9) DVT prophylaxis Current Visit: Yes Status: Acute Code(s): [id number] - SNOMED Code(s): 637555018 Comment: lovenox (10) DNR (do not resuscitate) Current Visit: Yes Status: Acute
[2017-05-07] MEDS: QUEtiapine TAB* 100 MG PO SCH (21:06)
[2017-05-08] MEDS: Piperacillin/Tazobactam 13.5 GM IV 24 hour continuous infusion IVPB SCH ×2 (01:35)
[2017-05-08] MEDS: Insulin LISPRO* 1 UNITS UNIT SUBCUT SCH ×2 (05:26→12:24)
[2017-05-08] MEDS: Enoxaparin(*) 80 MG/0.8 ML SYR SUBCUT SCH (05:26)
[2017-05-08 05:47] LABS: Hematocrit 30 % (42-52); Hemoglobin 10.1 g/dl (14.0-18.0); Mean Corpuscular HGB Conc 34 g/dl (31-36); Mean Corpuscular Hemoglobin 30 pg (27-31); Mean Corpuscular Volume 88 fL (80-94); Mean Platelet Volume 9 um3 (7.4-10.4); Platelet Count 165 10^3/ul (150-450); Red Blood Count 3.43 10^6/ul (4.0-5.4); Red Cell Distribution Width 14 % (10.5-15); White Blood Count 5.3 10^3/ul (3.5-10.8)
[2017-05-08 05:59] LABS: EGFR Non-African American 105.3 (>60)
[2017-05-08 06:05] LABS: INR 1.29 (0.77-1.02)
[2017-05-08] MEDS ORDERED: metFORMIN* 500 MG TAB PO SCH (08:00)
[2017-05-08] MEDS: D5W 1/2 NS 1000 ML BAG* 1,000 ML IV SCH (08:09)
[2017-05-08] MEDS: Cholecalciferol TAB* 1000 UNITS PO SCH (09:45)
[2017-05-08] MEDS: Amitriptyline TAB* 10 MG PO SCH (09:45)
[2017-05-08] MEDS: Aspirin Low Dose CHEW TAB* 81 MG PO SCH (09:45)
[2017-05-08] MEDS: QUEtiapine TAB* 25 MG PO SCH (09:45)
[2017-05-08] MEDS: TIMOLOL BOTH EYES SCH (09:46)
[2017-05-08] MEDS: BRIMONIDINE BOTH EYES SCH (09:46)
[2017-05-08] MEDS: Metoprolol Tartrate TAB* 25 MG PO SCH (09:46)
[2017-05-08] MEDS: Docusate CAP* 100 MG PO SCH (09:47)
[2017-05-08] MEDS: Dorzolamide/Timolol OPTH (NF) 10 ML BOT BOTH EYES SCH (09:47)
[2017-05-08] MEDS ORDERED: Acetaminophen ADULT LIQ* 650 MG/20.3 ML UDC PRN (09:59)
[2017-05-08] MEDS ORDERED: QUEtiapine TAB* 100 MG PEG TUBE SCH (10:00)
[2017-05-08] MEDS ORDERED: Amitriptyline TAB* 10 MG PEG TUBE SCH (10:00)
[2017-05-08] MEDS ORDERED: Cholecalciferol TAB* 1000 UNITS PEG TUBE SCH (10:00)
--- NOTE | 2017-05-08 10:05 | PN ---
Subjective Date of Service: 05/08/17 Interval History: Mr. Lyons is awake and in no acute distress sitting in a chair. He does not follow commands but is seen to move all four extremities. He is not verbal when I assess him. Objective Active Medications: Acetaminophen (Tylenol Tab*) 650 mg .SEE ORDER Q4H PRN Amitriptyline HCl (Elavil Tab*) 30 mg PEG TUBE DAILY [facility] Aspirin (Aspirin Low Dose Tab*) 81 mg PEG TUBE DAILY [facility] Atorvastatin Calcium (Lipitor*) 80 mg PEG TUBE 1700 [facility] Brimonidine/Timolol (Combigan Ophth (Nf)) 1 drop BOTH EYES BID [facility] Cholecalciferol (Vitamin D Tab*) 1,000 units PEG TUBE DAILY [facility] Dextrose (D50w Syringe 50 Ml*) 12.5 gm IV PUSH .FOR FS < 60 - SS PRN Docusate Sodium (Colace Cap*) 100 mg PO DAILY [facility] Dorzolamide/Timolol (Cosopt (Nf)) 1 drop BOTH EYES BID [facility] Enoxaparin Sodium (Lovenox(*)) 80 mg SUBCUT Q12H [facility] Piperacillin Sod/Tazobactam (Sod 13.5 gm/ Sodium Chloride) 500 mls @ 20.833 mls /hr IVPB Q24H [facility] Dextrose/Sodium Chloride (D5w 1/2 Ns 1000 Ml Bag*) 1,000 mls @ 50 mls/hr IV PER RATE [facility] Insulin Human Lispro (Humalog*) 0 units SUBCUT Q6HR [facility] Latanoprost (Xalatan 0.005%*) 1 drop BOTH EYES QPM [facility] Metformin HCl (Glucophage*) 500 mg PEG TUBE 0800,1700 [facility] Metoprolol Tartrate (Lopressor Tab*) 12.5 mg PEG TUBE Q12HR [facility] Ondansetron HCl (Zofran Inj*) 4 mg IV Q6H PRN Pantoprazole Sodium (Protonix Iv*) 40 mg IV Q24H [facility] Pharmacy Consult (Zosyn Per Pharmacy*) 1 note FOLLOW UP .ZOSYN PER PHARMACY [facility] Pharmacy Profile Note (Coumadin Daily Reminder*) 1 note FOLLOW UP 1700 [facility] Quetiapine Fumarate (Seroquel Tab*) 100 mg PEG TUBE BEDTIME [facility] Vital Signs: Temp Pulse Resp BP Pulse Ox 98.6 F 56 14 147/72 97 05/08/17 07:46 05/08/17 07:46 05/08/17 07:46 05/08/17 07:46 05/08/17 07:46 Oxygen Devices in Use Now: None Appearance: Male sitting up in chair in NAD Eyes: No Scleral Icterus Ears/Nose/Mouth/Throat: Mucous Membranes Moist Neck: Trachea Midline Respiratory: Symmetrical Chest Expansion and Respiratory Effort, Clear to Auscultation Cardiovascular: NL Sounds; No Murmurs; No JVD, No Edema Abdominal: NL Sounds; No Tenderness; No Distention Extremities: No Edema Skin: No Rash or Ulcers Neurological: NL Muscle Strength and Tone, - - Alert, not-interactive with me, see to move all extremities equally Nutrition: Taking PO's Result Diagrams: 05/08/17 05:09 05/08/17 05:09 Microbiology and Other Data: . Assess/Plan/Problems-Billing Assessment: Mr Lyons is a 71 yo M who has a h/o CVA in 03/2017, hydrocephalus s/p DRIVING TEACHER shunt, dementia, type II DM, HTN, HLD and bipolar disorder [facility] and was found to have a PE. - Patient Problems (1) Status post CVA Comment: - The patient sustained a CVA in 03/2017 with R hemiparesis. ? secondary to afib. - Continue ASA and lovenox bridge to coumadin. - Moderate oral dysphagia. PEG had migrated into duodenum causing obstruction but now PEG has been replaced last evening and is functioning appropriately. Continue TF with pleasure feeding. (2) Pulmonary embolism Comment: - Pt on 2L NC. - Lovenox bridge with coumadin. - PEs discovered on Abd/Pelvis CTA on arrival, confirmed with dedicated chest CTA. (3) Enterococcus faecalis infection Comment: - Repeat blood cultures negative so far. - Continue zosyn and monitor for source of infection. I spoke with Dr. Chaudhary and noted that only one blood culture was positive and patient has only had one fever since admission. Recommended 5 further days of augmentin. (4) Afib Comment: - The patient remains in NSR. - Continue low dose metoprolol and lovenox bridging to coumadin. (5) Bipolar 1 disorder Comment: - Continue seroquel and amitriptyline. (6) Diabetes Comment: - BGs 140-19o. - Continue metformin 500mg BID with lispro sliding scale. (7) Dementia Comment: - Continue supportive care. (8) Glaucoma Comment: - Continue home meds. (9) DVT prophylaxis Comment: - Lovenox bridge with warfarin. (10) DNR (do not resuscitate) Comment: Status and Disposition: Inpatient. Discharge back to [place] [facility].
[2017-05-08 11:29] VITALS: BP 127/74
[2017-05-08] MEDS: Pantoprazole IV* 40 MG IV SCH (12:24)
--- NOTE | 2017-05-08 14:05 | DS ---
CC: Dr. Ayala; [facility]* DATE OF ADMISSION: 05/04/2017. DATE OF DISCHARGE: 05/08/2017. ATTENDING PHYSICIAN: Dr. Lucia Bowser* (dictation provided by Diandra Hemphill NP) . PRINCIPAL DIAGNOSES: 1. PEG tube malposition with resultant obstruction, now replaced and functioning properly. 2. Pulmonary emboli. 3. Transient bacteremia. SECONDARY DIAGNOSES: 1. History of CVA in March of 2017. 2. Bipolar disorder. 3. Hypertension. 4. Hyperlipidemia. 5. Dementia. 6. Arthritis. 7. Type 2 diabetes. 8. 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 9. ANNIE. 10. PEG tube placement. 11. Hernia repair. 12. Bilateral knee arthroscopies. MEDICATIONS: 1. Aspirin 81 mg by PEG daily. 2. Amitriptyline 30 mg by PEG daily. 3. Tylenol 500 mg by PEG t.i.d. 4. Seroquel 50 mg b.i.d. and 100 mg at bedtime via PEG tube. 5. Nutritional supplement via PEG tube t.i.d. 6. Latanoprost 0.005% one drop both eyes q.p.m. 7. Atorvastatin 80 mg p.o. via PEG tube daily. 8. Multivitamin one tab via PEG tube daily. 9. Metformin 500 mg via PEG tube b.i.d. 10. Famotidine 40 mg via PEG tube daily. 11. Docusate 100 mg via PEG tube daily. 12. Cosopt 22.3/6.5 one drop both eyes b.i.d. 13. Vitamin C 500 mg via PEG tube daily. 14. Cholecalciferol 1,000 units via PEG tube daily. 15. Combigan 0.2/0.5% one drop both eyes b.i.d. 16. Dulcolax 10 mg p.r. daily prn. 17. Regular insulin as needed for coverage of blood sugar. 18. Coumadin 5 mg via PEG tube daily. 19. Warfarin via PEG tube daily. 20. Metoprolol Tartrate 12.5 mg via PEG tube q.12 hours. 21. Lovenox 80 mg subcutaneously q.12 hours. 22. Augmentin 875 mg p.o. via PEG tube b.i.d. 23. Tylenol prn. HOSPITAL COURSE: Mr. Lyons is a 71-year-old male who had a recent CVA and was at [facility] for rehabilitation. He had a PEG tube placed for poor oral intake due to moderate oropharyngeal dysphagia. He presented to our hospital on 05/04/2017 with concern for vomiting and chest pain. Please see the dictated history and physical from Moses Simon NP for complete details. The family at that time reported that he has been having intermittent issues with vomiting with his PEG tube feedings since placement, which had worsened when he was switched to bolus feedings. In the emergency room he had a CT of his abdomen and pelvis which found that he had migration of his G-tube into the duodenum. Unfortunately, he was also found incidentally to have pulmonary emboli bilaterally. The impression reads as follows: "High burden of acute pulmonary embolism. Mild circumferential mural thickening of the visualized distal esophagus; while nonspecific the most likely etiology is esophagitis. The balloon of the gastrostomy tube is at the level of the second segment of the duodenum and may result in partial obstruction. Correlate with clinical assessment." The patient was admitted to the hospital. Mr. Lyons also had a chest x-ray which showed no active cardiopulmonary disease. He had a transthoracic echocardiogram because of his report of chest pain and new finding of PE's which showed "global left ventricular wall motion and contractility are within normal limits. The estimated ejection fraction is greater than 65 percent. Abnormal left ventricular diastolic function is observed. The right ventricular global systolic function is hyperdynamic. Bubble study completed. Image quality not clear enough to rule out PFO or shunting. There is evidence of moderate pulmonary hypertension." He had a CT of his brain which showed "extremely limited exam due to motion artifact. No evidence for gross acute intracranial abnormality." The patient was seen in consultation by Dr. Adame and Dr. Schulz. I refer you to their notes for complete details. In brief, Dr. Adame agreed that the patient could be anticoagulated, but that Plavix should be discontinued. He further recommended a CT brain which did not show any new hydrocephalus or shunt malfunction, as well as the echocardiogram that did not show a patent foramen ovale. Dr. Schulz repositioned the PEG tube. Abdominal x-ray showed the tube was still in the duodenum. On 05/06/2017, Dr. Mcgraw replaced the G-tube with an 16 [place] Kangaroo G-tube without complication. A bumper was set at 6 cm. Abdominal x-ray at that time showed that the G-tube was in the stomach. The patient has been tolerating tube feedings well since then. In terms of his pulmonary emboli, the patient did have a chest/thorax CTA for complete evaluation of the burden of PE. It showed "bilateral pulmonary embolus ; bilateral pleural effusions; bibasilar atelectasis." The patient was started on Lovenox for a bridge with Warfarin which he continues on now. His INR today is 1.29. Mr. Lyons also had blood cultures during this hospitalization, of which one was positive for enterococcus faecalis. During this hospitalization, he has had one fever to 101.2. He initially had an elevated white blood cell count, but that has now normalized. I have reviewed this with Dr. Chaudhary verbally over the phone and made note of the fact that the patient only had one positive blood culture and one fever. He has been on Zosyn while hospitalized and the recommendation is for him to be discharged on Augment for five days. Mr. Lyons is doing better today and is medically stable for discharge back to [facility] to continue rehabilitation. I will note that he did have a swallow study during this hospitalization that showed he should be on pureed foods with thin liquids, but that he did have mild oropharyngeal dysphasia , but that he could eat for pleasure. DISPOSITION: To [facility]. DIET: Pureed, low fat, low salt. ACTIVITY: As tolerated. FOLLOW-UP PLANS: 1. Please follow-up with the providers at [facility] per routine. 2. Please follow-up with an INR on 05/11/2017 for newly started Warfarin for a pulmonary embolism. Approximately 60 minutes were spent on the discharge of this patient, more than half that time was spent with the patient at the bedside reviewing the events leading up to this hospitalization, reviewing the record, and reviewing the plan of care. DIANDRA HEMPHILL NP [id number]/[facility] #: [id number] RAQUEL
[2017-05-08] MEDS ORDERED: metFORMIN* 500 MG TAB PEG TUBE SCH (17:00)
[2017-05-08] MEDS ORDERED: Atorvastatin* 80 MG TAB PEG TUBE SCH (17:00)
[2017-05-08] MEDS ORDERED: Warfarin TAB(*) 5 MG PO SCH (17:00)
[2017-05-08] MEDS ORDERED: QUEtiapine TAB* 25 MG PEG TUBE SCH (18:00)
[2017-05-08] MEDS ORDERED: Metoprolol Tartrate TAB* 25 MG PEG TUBE SCH (21:00)
[2017-05-09] MEDS ORDERED: Aspirin Low Dose CHEW TAB* 81 MG PEG TUBE SCH (09:00)
[2017-05-09] MEDS ORDERED: Docusate LIQ* 100 MG/10 ML UDC PO SCH (09:00)
[2017-05-09] MEDS ORDERED: Amitriptyline TAB* 10 MG PEG TUBE SCH (09:00)
== END 2017-05-08 14:00 | DRG 919 ==
LOC: ED 04:34 → MEDTELE 07:21 → OBSVTOIN 05-05 12:00
PROVIDERS: ADMIT Internal Medicine; ATTEND Internal Medicine
PROC: 0D20XUZ Change Feeding Device in Upper Intestinal Tract, External Approach (ICD-10-PCS; principal; 2017-05-06)
DX: T85.528A Displacement of other gastrointestinal prosthetic devices, implants and grafts, initial encounter (principal); I26.99 Other pulmonary embolism without acute cor pulmonale; R78.81 Bacteremia; I48.91 Unspecified atrial fibrillation; E11.9 Type 2 diabetes mellitus without complications; B95.2 Enterococcus as the cause of diseases classified elsewhere; I69.351 Hemiplegia and hemiparesis following cerebral infarction affecting right dominant side; T85.598A Other mechanical complication of other gastrointestinal prosthetic devices, implants and grafts, initial encounter; X58.XXXA Exposure to other specified factors, initial encounter; Y92.009 Unspecified place in unspecified non-institutional (private) residence as the place of occurrence of the external cause; F31.9 Bipolar disorder, unspecified; I10 Essential (primary) hypertension; E78.5 Hyperlipidemia, unspecified; F03.90 Unspecified dementia, unspecified severity, without behavioral disturbance, psychotic disturbance, mood disturbance, and anxiety; Z66 Do not resuscitate; M19.90 Unspecified osteoarthritis, unspecified site; G47.33 Obstructive sleep apnea (adult) (pediatric); K20.9 Esophagitis, unspecified; Z98.2 Presence of cerebrospinal fluid drainage device; Z93.1 Gastrostomy status; I69.391 Dysphagia following cerebral infarction; Z79.01 Long term (current) use of anticoagulants; Z79.84 Long term (current) use of oral hypoglycemic drugs; Z79.1 Long term (current) use of non-steroidal anti-inflammatories (NSAID); Z79.82 Long term (current) use of aspirin; Z79.4 Long term (current) use of insulin; Z79.899 Other long term (current) drug therapy; Z88.6 Allergy status to analgesic agent; Z88.8 Allergy status to other drugs, medicaments and biological substances; Z83.3 Family history of diabetes mellitus; Z80.0 Family history of malignant neoplasm of digestive organs; I44.4 Left anterior fascicular block; H40.9 Unspecified glaucoma; Z99.3 Dependence on wheelchair
CPT/HCPCS: 36415; 70450; 71045; 71275; 74018; 74174; 80048; 80053; 81003; 81015; 82150; 82550; 83605; 83615; 83690; 83735; 84484; 85025; 85027; 85610; 85730; 86140; 87040; 87077; 87150; 87186; 87205; 87502; 87641; 87899; 93005; 93306; 99284; A9270-GY; G0378; J1160; J1650; J2060; J2543; J3475; J3480; J3490; Q9967